=== PATIENT | male | born 1985 | race African-American/Black ===

== ENCOUNTER 2017-10-07 17:24 | Emergency (ER) | payer OTHER ==
--- NOTE | 2017-10-07 18:37 | RAD ---
PORTABLE CHEST: 10/07/17 HISTORY: Hypoglycemic. Patient found unresponsive. Heart size and mediastinum are within normal limits. The lungs are clear of infiltrates. No significa nt bony findings. There is suggestion there may be some subsegmental atelectatic changes in the lung bases. IMPRESSION: Minimal subsegmental atelectasis in the lung bases. POS: [facility]
[2017-10-07 18:44] LABS: #Basophils 0.1 thou/uL (0.0-0.2); #Eosinphils 0.1 thou/uL (0.0-0.7); #Lymphocytes 1.2 thou/uL (1.20-3.40); #Monocytes 0.5 thou/uL (0.11-0.59); #Neutrophils 5.6 thou/uL (1.40-6.50); %Basophils 0.7 % (0.0-1.0); %Eosinophils 1.1 % (0.0-10.0); %Lymphocytes 16.4 % (21.0-51.0); %Neutrophils 74.9 % (42.0-75.0); Hemoglobin 13.1 g/dL (14.0-18.0); Mean Corpuscular HGB CONC 34.1 g/dL (32.0-36.0); Mean Corpuscular Volume 96.8 fl (80.0-94.0); Mean Platelet Volume 6.7 fL (7.4-10.4); Platelet Count 322 thou/uL (130-400); RBC Distribution Width 10.9 % (11.5-14.5); Red Blood Cell (RBC) Count 3.98 mill/uL (4.70-6.10); White Blood Cell (WBC) Count 7.4 thou/uL (4.8-10.8)
[2017-10-07 19:09] LABS: CKMB 2.9 ng/mL (0-6.6); Troponin I 0.013 ng/mL (< 0.028)
[2017-10-07 19:14] LABS: ALT (SGPT) 21 U/L (8-55); AST (SGOT) 21 U/L (5-34); Alkaline Phosphatase 87 U/L (40-150); Anion Gap 12 mmol/L (10-20); BUN (Urea Nitrogen) 36 mg/dL (8.9-20.6); Bilirubin, Total 0.7 mg/dL (0.2-1.2); Calc. Creatinine Clearance 0 mL/min (70-130); Calcium 9.3 mg/dL (7.8-10.44); Carbon Dioxide 27 mmol/L (22-29); Chloride 103 mmol/L (98-107); Estimated GFR-MDRD 36; Globulin 3.7 g/dL (2.4-3.5); Glucose 89 mg/dL (70-105); Magnesium 2.4 mg/dL (1.6-2.6); Potassium 4.2 mmol/L (3.5-5.1); Protein, Total 7.7 g/dL (6.0-8.3); Sodium 138 mmol/L (136-145)
== END 2017-10-07 20:17 | disposition home or self-care (01) ==
LOC: ERS 17:24
DX: E11.649 Type 2 diabetes mellitus with hypoglycemia without coma (principal); I10 Essential (primary) hypertension; Z79.899 Other long term (current) drug therapy
CPT/HCPCS: 36415; 36416; 71045; 80053; 82553; 83735; 84484; 85025; 93005

== ENCOUNTER 2019-06-14 11:46 | Inpatient (IN) | payer OTHER, SELFPAY ==
[2019-06-14 12:39] LABS: #Lymphocytes 0.9 thou/uL (1.20-3.40); #Monocytes 0.3 thou/uL (0.11-0.59); #Neutrophils 3.5 thou/uL (1.40-6.50); %Basophils 0.3 % (0.0-1.0); %Eosinophils 0.8 % (0.0-10.0); %Lymphocytes 18.3 % (21.0-51.0); %Monocytes 6.6 % (0.0-10.0); %Neutrophils 74.1 % (42.0-75.0); Hemoglobin 12.2 g/dL (14.0-18.0); Mean Corpuscular HGB CONC 32.7 g/dL (32.0-36.0); Mean Corpuscular Hemoglobin 32.1 pg (27.0-31.0); Mean Corpuscular Volume 98.1 fL (78.0-98.0); Mean Platelet Volume 7.4 fL (7.4-10.4); Platelet Count 300 thou/uL (130-400); RBC Distribution Width 10.8 % (11.5-14.5); Red Blood Cell (RBC) Count 3.79 mill/uL (4.70-6.10); White Blood Cell (WBC) Count 4.7 thou/uL (4.8-10.8)
[2019-06-14 13:06] LABS: ALT (SGPT) 29 U/L (8-55); AST (SGOT) 23 U/L (5-34); Albumin 3.5 g/dL (3.5-5.0); Alkaline Phosphatase 90 U/L (40-110); Anion Gap 17 mmol/L (10-20); BUN (Urea Nitrogen) 42 mg/dL (8.9-20.6); Bilirubin, Total 0.4 mg/dL (0.2-1.2); Calc. Creatinine Clearance 0 mL/min (70-130); Calcium 8.4 mg/dL (7.8-10.44); Carbon Dioxide 20 mmol/L (22-29); Chloride 104 mmol/L (98-107); Estimated GFR-MDRD 13; Globulin 3.2 g/dL (2.4-3.5); Glucose 171 mg/dL (70-105); Potassium 4.3 mmol/L (3.5-5.1); Protein, Total 6.7 g/dL (6.0-8.3); Sodium 137 mmol/L (136-145)
[2019-06-14] MEDS ORDERED: Adacel (T-DAP) 0.5 ML SYRINGE ONE ×2 (13:17→13:30)
[2019-06-14] MEDS ORDERED: Labetalol HCl 100 MG/20 ML VIAL ONE (14:37)
[2019-06-14 16:48] LABS: Troponin I 0.029 ng/mL (< 0.028)
[2019-06-14] MEDS ORDERED: Ondansetron PF 4 MG/2 ML Vial IVP PRN ×2 (19:02→19:19)
[2019-06-14] MEDS ORDERED: Ondansetron ODT 4 MG TAB SL PRN (19:02)
[2019-06-14] MEDS ORDERED: Sodium Chloride 0.9% 1,000 ML IV SCH (19:02)
[2019-06-14] MEDS ORDERED: Acetaminophen 325 MG TAB PO PRN (19:02)
[2019-06-14 19:09] VITALS: BMI 29.0
[2019-06-14] MEDS ORDERED: HumaLOG 300 UNITS/3 ML VIAL SC PRN (19:19)
[2019-06-14] MEDS ORDERED: cloNIDine 0.1 MG TAB PO PRN (19:19)
[2019-06-14] MEDS ORDERED: Dextrose 50% Abboject 50 ML SYRINGE SLOW IVP PRN (19:19)
[2019-06-14] MEDS ORDERED: Dextrose 5% in Water 1,000 ML IV PRN (19:19)
[2019-06-14] MEDS ORDERED: Acetaminophen 500 MG TAB PO PRN (19:19)
[2019-06-14] MEDS ORDERED: Ondansetron ODT 4 MG TAB PO PRN (19:19)
[2019-06-14] MEDS: cloNIDine 0.1 MG TAB PO PRN (19:57)
[2019-06-14 20:32] LABS: Troponin I 0.052 ng/mL (< 0.028)
[2019-06-14] MEDS: Famotidine 20 MG TAB PO SCH (22:02)
[2019-06-14] MEDS: Sodium Chloride 0.9% 1,000 ML IV SCH (22:03)
--- NOTE | 2019-06-15 00:01 | ULT ---
US Renal Bilateral STANDARD History: Acute kidney injury. Hypertension. Comparison: None. Findings: Real-time grayscale, color and spectral evaluation of the kidneys and urinary bladder was p erformed. Right kidney measures 10 x 4.1 x 5.3 cm and the left kidney measures 10 x 5.8 x 4.4 cm. No renal mass , hydronephrosis, or abnormal calcifications. No evidence for renal arterial stenosis. Both ureteral jets are seen. Normal arcuate resistive indices. Impression: No evidence for renal arterial stenosis or obstructive uropathy.
--- NOTE | 2019-06-15 00:02 | HP ---
PRIMARY CARE PHYSICIAN: Dr. Oakes at [facility]. CHIEF COMPLAINT: Confusion and elevated blood pressure. HISTORY OF PRESENT ILLNESS: This is a 33-year-old male with a significant history of hypertension, chronic kidney disease, and diabetes mellitus type 1, diagnosed at age 8, on chronic insulin therapy, who presented to [facility] Emergency Department after apparently noting elevated blood pressure, headaches, as well as confusion. The patient states he took 28 units of Lantus in the p.m. hours of 06/13/2019, he did not eat anything until the morning. The patient apparently presented to his employment, was found with altered mental status, at which point, a blood sugar was taken and noted at 47. The patient received orange juice with improvement in the glucose. The patient's mental status had improved with administration of glucose and juice as noted previously. The patient was also noted with elevated blood pressure over 200, at which point, the patient presented for evaluation. The patient denies compliance with his chronic medication regimen due to lack of medical insurance and inability for consistent followup. The patient has not seen his regular doctor at [facility] in over a year. The patient does admit to drinking multiple energy drinks during the day as well as a pre-workout creatine based supplement before doing weightlifting and cardiovascular workouts. The patient denied any chest pain, jaw, or left arm discomfort. The patient denied any hematuria, change to his bowel habits, or decreased urination. The patient does admit to lower extremity swelling over the last several weeks, left greater than right lower extremity. In the emergency room, the patient was noted with multiple metabolic derangements including a creatinine of 6.25, previously noted at 2.55 in 2018. The patient was also noted with systolic blood pressures in the 220/120s, receiving IV labetalol and p.o. clonidine. The patient also received intravenous normal saline x2 L and was referred to the Hospitalist Service for further evaluation. PAST MEDICAL HISTORY: 1. Diabetes mellitus type 1, diagnosed at age 8, on chronic insulin therapy. 2. Chronic kidney disease. 3. Hypertension, labile. 4. Medication noncompliance. PAST SURGICAL HISTORY: Status post right knee repair. FAMILY HISTORY: No inheritable diseases per patient report. SOCIAL HISTORY: The patient drinks approximately 1 to 2 times per month. No illicit drug use. No tobacco. CURRENT MEDICATIONS: 1. Benazepril 40 mg p.o. daily. 2. Carvedilol 12.5 mg p.o. daily. 3. Lantus 28 units at bedtime. ALLERGIES: NO KNOWN DRUG ALLERGIES. REVIEW OF SYSTEMS: CONSTITUTIONAL: Negative for weight loss or gain, ability to conduct usual activities. SKIN: Negative for rash, itching. EYES: Negative for double vision, pain. ENT/MOUTH: Negative for nose bleeding, neck stiffness, pain, tenderness. CARDIOVASCULAR: Negative for palpitations, dyspnea on exertion, orthopnea. RESPIRATORY: Negative for shortness of breath, wheezing, cough, hemoptysis, fever or night sweats. GASTROINTESTINAL: Negative for poor appetite, abdominal pain, heartburn, nausea, vomiting, constipation, or diarrhea. GENITOURINARY: Negative for urgency, frequency, dysuria, nocturia. MUSCULOSKELETAL: Negative for pain, swelling. NEUROLOGIC/PSYCHIATRIC: Negative for anxiety, depression. ALLERGY/IMMUNOLOGIC: Negative for skin rash, bleeding tendency. Otherwise negative except as stated per HPI. PHYSICAL EXAMINATION: VITAL SIGNS: On admission, blood pressure 190/117, pulse 109, respiratory rate 18, temperature 98.2 degrees Fahrenheit, O2 saturation 98% on room air. GENERAL APPEARANCE: This is a 33-year-old male, alert and oriented x3, pleasant, in no acute distress. HEENT: Pupils are equal, round, reactive to light and accommodation. Extraocular muscles are intact. No scleral icterus. No conjunctival injection. Nares are patent. OP is clear. Teeth in good repair. NECK: Supple. No cervical adenopathy. No thyromegaly. No carotid bruits. No JVD appreciated. Cervical spine with full active and passive range of motion. No meningeal signs noted. CHEST: Lungs are clear to auscultation bilaterally CARDIOVASCULAR: S1, S2 without noted murmur, rub, or gallop. ABDOMEN: Rounded, soft, nontender, and nondistended. Bowel sounds are positive in all 4 quadrants. There is no hepatosplenomegaly. No abdominal bruits. No rebound or guarding appreciated. EXTREMITIES: Warm and dry with fair turgor. Mild edema to the left lower extremity greater than right lower extremity. Pulses are palpable distally at the dorsalis pedis, posterior tibial, and popliteal arteries bilaterally. Capillary refill less than 2 seconds. NEUROLOGIC: Cranial nerves 2 through 12 are grossly intact. No focal or lateralizing signs appreciated. PERTINENT LABORATORY DATA AND X-RAY FINDINGS: Sodium 137, potassium 4.3, chloride 104, CO2 of 20, BUN 42, creatinine 6.25. Estimated GFR of 13, glucose 171, calcium 8.4. LFTs within normal limits. Total CK 258. Troponin I ranged between 0.027 and 0.029. CBC showed a white blood cell count of 4.7, hemoglobin 12, hematocrit 37, MCV 98, platelet count 300, with normal differential. EKG dated 06/14/2019 by my interpretation shows a sinus tachycardia with heart rates in the low 100s. Normal R-wave progression noted in the precordial leads. Normal axis. ASSESSMENT AND PLAN: 1. Hypertensive urgency. The patient will be admitted to the telemetry unit. We will continue labetalol 20 mg IV q.4 hours p.r.n. systolic greater than or equal to 170. Add clonidine 0.1 mg p.o. q.4 hours as needed for systolic greater than or equal to 170. Confirm home blood pressure regimen. Titrate blood pressure regimen to clinical response. Check 2D transthoracic echocardiogram. 2. Acute kidney injury on chronic kidney disease. Likely multifactorial acute kidney injury in the context of diabetes mellitus type 1, hypertension, and medication noncompliance. We will initiate intravenous normal saline at 75 mL/h. Avoid nephrotoxic agents and limit contrast exposure. Consult Nephrology Service for any further recommendations. Check bilateral renal ultrasound. Repeat creatinine in the a.m. 3. Hypertensive encephalopathy, improved. We will continue to monitor mental status and treat hypertension as stated previously. 4. Diabetes mellitus type 1. Insulin sliding scale for reflexive coverage. ADA diet. Check A1c level in the a.m. 5. Anemia secondary to chronic kidney disease. Stable H and H currently. Repeat CBC in the a.m. 6. Prophylaxis. SCDs while in bed. Pepcid 20 mg p.o. b.i.d. CODE STATUS: Full. Surrogate medical decision maker not identified. Job ID: [id number]
[2019-06-15 05:14] LABS: Hemoglobin 10.5 g/dL (14.0-18.0); Mean Corpuscular HGB CONC 33.5 g/dL (32.0-36.0); Mean Corpuscular Hemoglobin 32.5 pg (27.0-31.0); Mean Corpuscular Volume 97.2 fL (78.0-98.0); Mean Platelet Volume 7.1 fL (7.4-10.4); Platelet Count 267 thou/uL (130-400); RBC Distribution Width 10.7 % (11.5-14.5); Red Blood Cell (RBC) Count 3.24 mill/uL (4.70-6.10); White Blood Cell (WBC) Count 5.1 thou/uL (4.8-10.8)
[2019-06-15 05:15] LABS: Eosinophils 1 % (0-10); Lymphocytes 40 % (21-51); MDiff Complete? YES; Monocytes 7 % (0-10); Neutrophil 52 % (42-75); Platelet Morphology Comment Appears Adequate
[2019-06-15 05:22] LABS: Anion Gap 13 mmol/L (10-20); BUN (Urea Nitrogen) 39 mg/dL (8.9-20.6); Calc. Creatinine Clearance 25 mL/min (70-130); Calcium 8.3 mg/dL (7.8-10.44); Carbon Dioxide 20 mmol/L (22-29); Chloride 110 mmol/L (98-107); Estimated GFR-MDRD 15; Glucose 149 mg/dL (70-105); Potassium 3.8 mmol/L (3.5-5.1); Sodium 139 mmol/L (136-145)
[2019-06-15] MEDS: cloNIDine 0.1 MG TAB PO PRN (08:00)
[2019-06-15] MEDS: HumaLOG 300 UNITS/3 ML VIAL SC PRN ×2 (08:02→17:11)
[2019-06-15] MEDS: cloNIDine 0.1 MG TAB PO SCH ×2 (09:56→20:40)
[2019-06-15] MEDS ORDERED: cloNIDine 0.1 MG TAB PO SCH (10:00)
[2019-06-15] MEDS: NIFEdipine XL 30 MG TAB PO SCH (10:11)
[2019-06-15] MEDS: Sodium Chloride 0.9% 1,000 ML IV SCH ×2 (10:12→12:11)
--- NOTE | 2019-06-15 10:30 | CON ---
DATE OF CONSULTATION: HISTORY OF PRESENT ILLNESS: Mr. Jones is a 33-year-old black male, known history of hypertension, type 1 diabetes mellitus, chronic renal failure, and was admitted due to hypoglycemia. He was also noted to have an acute kidney injury on top of his chronic renal failure. His FANNY inhibitors have been discontinued. He is being given IV hydration. The patient no longer follows up with his renal doctor when he lost his insurance. We are being consulted for his acute kidney injury. REVIEW OF SYSTEMS: Positive for dizziness. No chest pain. No shortness of breath. Occasional leg edema. No diarrhea. No constipation. No productive cough. No fever or chills. No headache. No diplopia. No syncopal episode. No sore throat. No diarrhea. No fever or chills. Appetite and energy level are fair. HOME MEDICATIONS: Included, 1. Hydrochlorothiazide 25 mg once a day. 2. Fish oil 1000 mg daily. 3. Carvedilol 12.5 mg p.o. b.i.d. 4. Benazepril 40 mg at bedtime. 5. Aspirin 81 mg tablet once a day. 6. Lantus insulin 28 units subcu at bedtime. PAST MEDICAL HISTORY: Type 1 diabetes mellitus, hypertension, chronic renal failure secondary to presumed diabetic nephropathy. PAST SURGICAL HISTORY: Right knee arthroscopic surgery. SOCIAL HISTORY: The patient is single, lives in [place]. 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 Education, high school. No children. No IV drug abuse. No blood transfusion. Active lifestyle. Education, high school. FAMILY HISTORY: No family history of ESRD. ALLERGIES: NONE. TRAUMA: None. IMMUNIZATION: Up-to-date. HOSPITALIZATION: Please see past medical history. PHYSICAL EXAMINATION: VITAL SIGNS: Blood pressure is 209/118, heart rate is 97, respiratory rate is 16, temperature is 98, and pulse oximetry is 99%. GENERAL: Noted to be awake, alert, sitting comfortable, not in overt distress. SKIN: Adequate turgor. HEENT: He has slightly pale conjunctivae. Anicteric sclerae. NECK: No neck mass. No carotid bruits. No JVD. CHEST: No deformities. LUNGS: Clear breath sounds. No wheezing. No crackles. HEART: Normal sinus rhythm. No murmur. No gallops. No rubs. ABDOMEN: Globular, soft, nontender. No masses. EXTREMITIES: No edema. No deformities. LABORATORY DATA: Laboratories of June 15, 2019, white count 5.1, hemoglobin 10.5. Sodium 139, potassium 3.8, chloride 110, carbon dioxide 20, BUN 39, creatinine 5.53, GFR 15 mL/minute, calcium 8.3. June 14, 2019, creatinine 6.25. Troponin I 0.052. IMAGING STUDIES: June 14, 2019, renal ultrasound shows normal arcuate resistive indices. No obstruction. No evidence of renal arterial stenosis. ASSESSMENT AND PLAN: 1. Labile hypertension. Start clonidine on a regular basis. Consider also adding nifedipine 30 mg XL tablet once a day. We will hold off FNANY inhibitors due to his elevated creatinine. 2. Acute kidney injury on top of his chronic renal failure-consider a superimposed hemodynamically-mediated renal dysfunction. Please note, he was on FANNY inhibitors prior to admission. The FANNY inhibitors have been discontinued. 3. Chronic renal failure. 4. History of diabetes mellitus and most likely diabetic nephropathy. We will review urinalysis. 5. Overall agree with current management. Job ID: [id number]
--- NOTE | 2019-06-15 11:07 | PDOC.HOSPP ---
- Subjective Encounter Date: 06/15/19 Encounter Time: 11:05 Subjective: f/u for HTN urgency, SHAYY. Feels better overall and less THOMAS. - Objective Vital Signs & Weight: Vital Signs (12 hours) Temp Pulse Resp BP BP Pulse Ox 06/15/19 10:11 193/107 H 06/15/19 08:00 209/118 H 06/15/19 07:55 98 F 97 16 209/118 H 97 06/15/19 04:00 98.5 F 92 18 162/91 H 98 06/15/19 00:00 98.2 F 87 20 165/95 H 99 Weight Weight 202 lb 7 oz I&O: 06/14/19 06/15/19 06/16/19 06:59 06:59 06:59 Intake Total 840 Balance 840 Result Diagrams: 06/15/19 04:55 06/15/19 04:55 Additional Labs: Accuchecks 06/15/19 06/14/19 06/14/19 06:37 22:04 20:20 POC Glucose 160 H 326 H 252 H 06/14/19 11:54 POC Glucose 126 H Laboratory Tests 06/14/19 06/14/19 06/14/19 12:28 12:28 12:29 Hgb 12.2 L Creatinine 6.25 H Hemoglobin A1c Troponin I 0.027 06/14/19 06/14/19 06/15/19 15:58 19:57 04:55 Hgb Creatinine Hemoglobin A1c 8.0 H Troponin I 0.029 H 0.052 H Radiology Reviewed by me: Yes (Renal sono - no obstruction or stenosis) EKG Reviewed by me: Yes (Tele - SR) Hospitalist ROS - Medication Medications: Active Medications Generic Name Dose Route Start Last Admin Trade Name Freq PRN Reason Stop Dose Admin Clonidine 0.2 mg 06/15/19 09:00 06/15/19 09:56 Catapres PO Not Given BID FLORENTINO Clonidine 0.1 mg 06/15/19 10:00 06/15/19 10:11 Catapres PO 06/15/19 12:00 0.1 mg NOW FLORENTINO Administration Famotidine 20 mg 06/14/19 21:00 06/14/19 22:02 Pepcid PO 20 mg QPM FLORENTINO Administration Insulin Human Lispro 0 units 06/14/19 19:19 06/15/19 08:02 Humalog SC 3 unit .AGGRESSIVE SLIDING PRN Administration Aggressive Correctional Scale Insulin Human Lispro 0 units 06/14/19 19:19 06/14/19 22:07 Humalog SC 4 unit .BEDTIME SLIDING SC PRN Administration Bedtime Correctional Scale Nifedipine 30 mg 06/15/19 09:00 06/15/19 10:11 Procardia Xl PO 30 mg DAILY FLORENTINO Administration - Exam General Appearance: NAD, awake alert Eye: PERRL, anicteric sclera ENT: normocephalic atraumatic, no oropharyngeal lesions Neck: supple, symmetric, no JVD, no thyromegaly, no lymphadenopathy Heart: RRR, no murmur, no gallops, no rubs, normal peripheral pulses Respiratory: CTAB, no wheezes, no rales, no ronchi, normal chest expansion Gastrointestinal: soft, non-tender, non-distended, normal bowel sounds Extremities: no cyanosis, no clubbing, 1+ LE edema Skin: normal turgor, no lesions Neurological: cranial nerve grossly intact, no focal deficits, no new deficit Musculoskeletal: normal tone, normal strength Psychiatric: normal affect, A&O x 3 Hosp A/P (1) Hypertensive urgency Code(s): I16.0 - HYPERTENSIVE URGENCY Status: Acute Plan: Labile BP persists, resume Coreg 12.5mg BID, continue Clonidine, Procardia, holding FANNY-i/HCTZ due to SHAYY/ATN (2) Acute tubular necrosis Code(s): N17.0 - ACUTE KIDNEY FAILURE WITH TUBULAR NECROSIS Status: Acute Plan: Mild improvement, continue low-volume IVF's, avoid nephrotoxic meds and limit contrast exposure, serial creatinine (3) CKD (chronic kidney disease) stage 3, GFR 30-59 ml/min Code(s): N18.3 - CHRONIC KIDNEY DISEASE, STAGE 3 (MODERATE) Status: Chronic Plan: See above (4) Anemia in CKD (chronic kidney disease) Code(s): N18.9 - CHRONIC KIDNEY DISEASE, UNSPECIFIED; D63.1 - ANEMIA IN CHRONIC KIDNEY DISEASE Status: Chronic Plan: No evidence of active loss, serial H/H monitoring - Plan social media director, DVT proph w/SCDs Continue low-volume IVF's Restart Coreg 12.5mg BID Continue Nifedipine 30mg daily Avoid nephrotoxic meds and hold FANNY-i/HCTZ AM lab: BMP, CBC, PO3
[2019-06-15] MEDS ORDERED: Carvedilol 6.25 MG TAB PO SCH (11:15)
[2019-06-15] MEDS ORDERED: Non-Formulary Item 1 EACH (Carvedilol [Carvedilol] 12.5 MG) PO SCH ×2 (11:30→21:00)
[2019-06-15 13:28] LABS: Bacteria/HPF None Seen HPF (None Seen); Bilirubin Negative (Negative); Blood, Urine Trace (Negative); Clarity Clear (Clear); Glucose, Urine (Dipstick) 300 mg/dL (Negative); Leukocyte Negative Leu/uL (Negative); Nitrite Negative (Negative); Protein, Urine (Dipstick) 200 mg/dL (Neg-Trace); RBC/HPF 0-3 HPF (0-3); Squamous Epithelial 0-3 HPF (0-3); Urobilinogen Normal mg/dL (Less than 2); WBC/HPF 0-3 HPF (0-3)
[2019-06-15] MEDS ORDERED: Insulin Glargine 28 UNITS in Pre-Filled Syringe 1 EACH SC SCH (17:15)
[2019-06-15] MEDS: Carvedilol 6.25 MG TAB PO SCH (20:40)
[2019-06-15] MEDS: Famotidine 20 MG TAB PO SCH (20:40)
[2019-06-16] MEDS: Labetalol HCl 100 MG/20 ML VIAL SLOW IVP PRN (04:11)
[2019-06-16 06:00] LABS: #Basophils 0.1 thou/uL (0.0-0.2); #Eosinphils 0.2 thou/uL (0.0-0.7); #Lymphocytes 1.5 thou/uL (1.20-3.40); #Monocytes 0.4 thou/uL (0.11-0.59); #Neutrophils 3.1 thou/uL (1.40-6.50); %Basophils 1.1 % (0.0-1.0); %Eosinophils 3.4 % (0.0-10.0); %Lymphocytes 28.5 % (21.0-51.0); %Monocytes 7.1 % (0.0-10.0); %Neutrophils 59.8 % (42.0-75.0); Hemoglobin 11.4 g/dL (14.0-18.0); Mean Corpuscular HGB CONC 34.6 g/dL (32.0-36.0); Mean Corpuscular Volume 95.5 fL (78.0-98.0); Platelet Count 266 thou/uL (130-400); RBC Distribution Width 10.6 % (11.5-14.5); Red Blood Cell (RBC) Count 3.46 mill/uL (4.70-6.10); White Blood Cell (WBC) Count 5.2 thou/uL (4.8-10.8)
[2019-06-16 06:22] LABS: Anion Gap 12 mmol/L (10-20); BUN (Urea Nitrogen) 39 mg/dL (8.9-20.6); Calc. Creatinine Clearance 26 mL/min (70-130); Calcium 8.2 mg/dL (7.8-10.44); Carbon Dioxide 21 mmol/L (22-29); Chloride 106 mmol/L (98-107); Estimated GFR-MDRD 15; Glucose 180 mg/dL (70-105); Phosphorus 4.2 mg/dL (2.3-4.7); Potassium 4.1 mmol/L (3.5-5.1); Sodium 135 mmol/L (136-145)
[2019-06-16] MEDS ORDERED: Insulin Glargine 28 UNITS in Pre-Filled Syringe 1 EACH SC SCH (09:00)
[2019-06-16] MEDS: Carvedilol 6.25 MG TAB PO SCH ×2 (09:39→19:55)
[2019-06-16] MEDS: cloNIDine 0.1 MG TAB PO SCH ×2 (09:39→19:54)
[2019-06-16] MEDS: NIFEdipine XL 30 MG TAB PO SCH (09:39)
--- NOTE | 2019-06-16 09:39 | PRG ---
DATE OF SERVICE: 06/16/2019 SUBJECTIVE: Mr. Jones is a 33-year-old black male, who was admitted for labile hypertension. He was also found to be in acute kidney injury on top of his chronic renal failure. Gentle IV hydration is being done. In addition, his medications were adjusted. He has been discontinued his benazepril. Creatinine is stabilizing. No new complaints today. No chest pain or shortness of breath. OBJECTIVE: VITAL SIGNS: Blood pressure 178/100, heart rate 88, respiratory rate 18, temperature 97.5, and pulse ox 99% on room air. GENERAL: Awake, alert, comfortable, not in distress. SKIN: Adequate turgor. HEENT: Pinkish conjunctivae, anicteric sclerae. NECK: No neck mass. No carotid bruits. No JVD. CHEST: No deformities. LUNGS: Clear breath sounds. HEART: Normal sinus rhythm. No murmur. No gallops. No rubs. ABDOMEN: Globular, soft, nontender. No masses. EXTREMITIES: No edema, no deformities. MEDICATIONS: June 16, 2019, was reviewed. LABORATORY DATA: Laboratories of June 16, 2019, showed sodium of 135, potassium 4.1, chloride 106, carbon dioxide 21, BUN 39, creatinine 5.29, glucose 180, and calcium 8.2, phosphorus 4.2. PTH is 297. Hemoglobin 11.4. Cardiac echo-normal EF. Urinalysis shows proteinuria. ASSESSMENT AND PLAN: 1. Acute kidney injury on top of his chronic renal failure-superimposed hemodynamically mediated renal dysfunction. The medication benazepril may be playing a factor in the worsening renal dysfunction. This has been discontinued. Continue gentle volume repletion. I have increase normal saline to 125 mL/hour. No indication for any dialytic intervention. I do anticipate further improvement with his renal function. 2. Labile hypertension. Continue current BP medications. Hold off any FANNY inhibitors or ARB. 3. Chronic renal failure secondary to diabetic nephropathy. Optimize diabetes control. 4. Recheck CBC basic metabolic profile in a.m. 5. Secondary hyperparathyroidism. Calcitriol 0.25 mcg tablet daily was started. Job ID: [id number]
[2019-06-16] MEDS: Aspirin 81 mg Enteric Coated Tablet PO SCH (09:40)
[2019-06-16] MEDS: HumaLOG 300 UNITS/3 ML VIAL SC PRN ×3 (09:42→18:20)
[2019-06-16] MEDS: Sodium Chloride 0.9% 1,000 ML IV SCH ×4 (09:52→21:33)
[2019-06-16] MEDS: Calcitriol 0.25 MCG CAP PO SCH (09:53)
--- NOTE | 2019-06-16 13:46 | PDOC.HOSPP ---
- Subjective Subjective: Seen and examined. Patient sitting up and share, eating breakfast. In no apparent distress. Patient inquiring on when he can go home. Patient's renal function and sodium are still severely abnormal. Patient's blood sugars not controlled. Time was given for questions, all answered in detail. Patient has several family members who have been on dialysis in the past. - Objective Vital Signs & Weight: Vital Signs (12 hours) Temp Pulse Resp BP BP Pulse Ox 06/16/19 11:43 98.5 F 72 12 154/85 H 100 06/16/19 09:39 91 06/16/19 08:10 98 F 91 18 180/102 H 98 06/16/19 05:55 178/100 H 06/16/19 04:11 85 187/108 H 06/16/19 04:00 97.5 F L 88 18 180/106 H 99 Weight Admit Weight 202 lb 7 oz Weight 200 lb 7 oz I&O: 06/15/19 06/16/19 06/17/19 06:59 06:59 06:59 Intake Total 840 3070 Output Total 650 Balance 840 2420 Result Diagrams: 06/16/19 05:51 06/16/19 05:51 Additional Labs: Accuchecks 06/16/19 06/16/19 06/16/19 12:56 09:39 05:26 POC Glucose 218 H 245 H 191 H 06/15/19 06/15/19 06/15/19 23:32 20:20 17:02 POC Glucose 184 H 209 H Greater than 550 H* 06/15/19 16:48 POC Glucose 531 H Radiology Reviewed by me: Yes (Echo) Hospitalist ROS - Review of Systems All other systems reviewed; all pertinent +/- noted in HPI/Subj - Medication Medications: Active Medications Generic Name Dose Route Start Last Admin Trade Name Freq PRN Reason Stop Dose Admin Aspirin 81 mg 06/16/19 09:00 06/16/19 09:40 Ecotrin PO 81 mg DAILY FLORENTINO Administration Calcitriol 0.25 mcg 06/16/19 09:00 06/16/19 09:53 Rocaltrol PO 0.25 mcg DAILY FLORENTINO Administration Carvedilol 12.5 mg 06/15/19 21:00 06/16/19 09:39 Coreg PO 12.5 mg BID FLORENTINO Administration Clonidine 0.2 mg 06/15/19 09:00 06/16/19 09:39 Catapres PO 0.2 mg BID FLORENTINO Administration Famotidine 20 mg 06/14/19 21:00 06/15/19 20:40 Pepcid PO 20 mg QPM FLORENTINO Administration Sodium Chloride 1,000 mls @ 125 mls/hr 06/16/19 08:38 06/16/19 09:54 Normal Saline 0.9% IV 1,000 mls .Q8H FLORENTINO Administration Insulin Human Lispro 0 units 06/14/19 19:19 06/16/19 13:33 Humalog SC 6 unit .AGGRESSIVE SLIDING PRN Administration Aggressive Correctional Scale Insulin Human Lispro 0 units 06/14/19 19:19 06/14/19 22:07 Humalog SC 4 unit .BEDTIME SLIDING SC PRN Administration Bedtime Correctional Scale Labetalol HCl 20 mg 06/14/19 19:19 06/16/19 04:11 Normodyne SLOW IVP 20 mg Q4H PRN Administration SBP > 180 and HR >/= 70 Nifedipine 30 mg 06/15/19 09:00 06/16/19 09:39 Procardia Xl PO 30 mg DAILY FLORENTINO Administration - Exam General Appearance: NAD Eye: PERRL, anicteric sclera ENT: normocephalic atraumatic, moist mucosa Neck: supple, symmetric, no lymphadenopathy Heart: RRR, no murmur, no gallops, no rubs Respiratory: CTAB, no wheezes, no rales, no ronchi, normal chest expansion Gastrointestinal: soft, non-tender, non-distended, normal bowel sounds, no palpable masses, no guarding, no rigidity Extremities: no edema Skin: no lesions, no rashes Neurological: no weakness Musculoskeletal: normal tone, normal strength, no muscle wasting Psychiatric: normal affect, A&O x 3 Hosp A/P (1) 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 Code(s): E10.29 - TYPE 1 DIABETES MELLITUS W OTH DIABETIC KIDNEY COMPLICATION; E10.65 - TYPE 1 DIABETES MELLITUS WITH HYPERGLYCEMIA Status: Chronic (2) Acute tubular necrosis Code(s): N17.0 - ACUTE KIDNEY FAILURE WITH TUBULAR NECROSIS Status: Acute (3) Hypertensive urgency Code(s): I16.0 - HYPERTENSIVE URGENCY Status: Acute (4) Anemia in CKD (chronic kidney disease) Code(s): N18.9 - CHRONIC KIDNEY DISEASE, UNSPECIFIED; D63.1 - ANEMIA IN CHRONIC KIDNEY DISEASE Status: Chronic (5) CKD (chronic kidney disease) stage 3, GFR 30-59 ml/min Code(s): N18.3 - CHRONIC KIDNEY DISEASE, STAGE 3 (MODERATE) Status: Chronic - Plan Plan: medical unit with telemetry, okay for downgrade to medical nephrology consultation, recommendations appreciated renal function slowly improving blood pressure medications being adjusted appropriately by nephrology long and short acting insulin for glucose control, adjusting regimen educated on importance of taking control of his blood sugars and hypertension to avoid renal failure patient does admit to missing several doses of medications in the past few days/ weeks. PRN medications for BP control
[2019-06-16] MEDS: Famotidine 20 MG TAB PO SCH (19:55)
[2019-06-16] MEDS ORDERED: Insulin Glargine 15 UNITS in Pre-Filled Syringe SC SCH (21:00)
[2019-06-17] MEDS: Sodium Chloride 0.9% 1,000 ML IV SCH ×2 (05:04→16:57)
[2019-06-17 06:03] LABS: #Basophils 0.1 thou/uL (0.0-0.2); #Eosinphils 0.2 thou/uL (0.0-0.7); #Monocytes 0.4 thou/uL (0.11-0.59); #Neutrophils 2.2 thou/uL (1.40-6.50); %Basophils 1.2 % (0.0-1.0); %Eosinophils 3.9 % (0.0-10.0); %Lymphocytes 41.1 % (21.0-51.0); %Monocytes 8.7 % (0.0-10.0); %Neutrophils 45.1 % (42.0-75.0); Hemoglobin 11.6 g/dL (14.0-18.0); Mean Corpuscular HGB CONC 34.4 g/dL (32.0-36.0); Mean Corpuscular Hemoglobin 33.1 pg (27.0-31.0); Mean Corpuscular Volume 96.2 fL (78.0-98.0); Mean Platelet Volume 7.5 fL (7.4-10.4); Platelet Count 264 thou/uL (130-400); RBC Distribution Width 10.6 % (11.5-14.5); Red Blood Cell (RBC) Count 3.51 mill/uL (4.70-6.10); White Blood Cell (WBC) Count 4.9 thou/uL (4.8-10.8)
[2019-06-17 06:24] LABS: Anion Gap 12 mmol/L (10-20); BUN (Urea Nitrogen) 40 mg/dL (8.9-20.6); Calc. Creatinine Clearance 27 mL/min (70-130); Calcium 8.3 mg/dL (7.8-10.44); Carbon Dioxide 19 mmol/L (22-29); Chloride 109 mmol/L (98-107); Estimated GFR-MDRD 16; Glucose 76 mg/dL (70-105); Potassium 3.9 mmol/L (3.5-5.1); Sodium 136 mmol/L (136-145)
[2019-06-17] MEDS: Aspirin 81 mg Enteric Coated Tablet PO SCH (08:38)
[2019-06-17] MEDS: Carvedilol 6.25 MG TAB PO SCH (08:38)
[2019-06-17] MEDS: NIFEdipine XL 30 MG TAB PO SCH (08:39)
[2019-06-17] MEDS: Calcitriol 0.25 MCG CAP PO SCH (08:39)
[2019-06-17] MEDS: cloNIDine 0.1 MG TAB PO SCH ×2 (08:39→19:51)
--- NOTE | 2019-06-17 09:52 | PRG ---
DATE OF SERVICE: 06/17/2019 SUBJECTIVE: Mr. Jones is a 33-year-old black male, who was admitted for labile hypertension and acute kidney injury on top of his chronic renal failure. Creatinine has now been stabilizing. Blood pressure is also much improved. I did have a long discussion with the patient that he may eventually need dialysis. He is aware about this. The patient denies any chest pain or shortness of breath. OBJECTIVE: VITAL SIGNS: Blood pressure 164/99, heart rate 88, respiratory rate 16, temperature 98.6, and pulse ox 100%. GENERAL: The patient is awake, alert, comfortable, not in distress. SKIN: Adequate turgor. HEENT: He has a pinkish conjunctivae. Anicteric sclerae. NECK: No neck mass. No carotid bruits. No JVD. CHEST: No deformities. LUNGS: Clear breath sounds. No wheezing. No crackles. HEART: Normal sinus rhythm. No murmur. No gallops. No rubs. ABDOMEN: Globular, soft, nontender, no masses. EXTREMITIES: No edema, no deformities. MEDICATIONS: Of June 17, 2019, was reviewed. LABORATORY DATA: June 17, 2019, white count 4.9, hemoglobin 11.6. Sodium 136, potassium 3.9, chloride 109, carbon dioxide 19, BUN 40, creatinine 5.09, glucose 76, calcium 8.3. ASSESSMENT AND PLAN: 1. Acute kidney injury on top of his chronic renal failure, slightly improved creatinine at 5.09. Please note, he came in with a peak creatinine of 6.25. GFR is much improved from 13 mL/minute to most recent value of 16 mL/minute. Continue current management. Hold off any FANNY inhibitors or ARB for the moment. 2. Labile hypertension, improving. Continue current BP medications. From a renal point of view, he can be discharge any time. 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 Job ID: [id number]
[2019-06-17] MEDS: Insulin Glargine 15 UNITS in Pre-Filled Syringe 1 EACH SC SCH (10:23)
[2019-06-17] MEDS: HumaLOG 300 UNITS/3 ML VIAL SC PRN ×2 (12:03→18:15)
[2019-06-17] MEDS: Labetalol HCl 100 MG/20 ML VIAL SLOW IVP PRN (13:26)
--- NOTE | 2019-06-17 14:07 | PDOC.HOSPP ---
- Subjective Subjective: Seen and examined. Patient with highs and lows to blood sugar. This morning he is low and required several juices to bring his blood sugars up. Adjusting insulin regimen to avoid hypoglycemia and yet have his sugars controlled in the daytime has been difficult. Brittle diabetic. Renal function with minor improvements. - Objective Vital Signs & Weight: Vital Signs (12 hours) Temp Pulse Resp BP BP Pulse Ox 06/17/19 13:26 88 191/107 H 06/17/19 13:25 98.3 F 88 18 191/107 H 98 06/17/19 08:39 88 06/17/19 08:05 98.6 F 88 16 164/99 H 100 06/17/19 08:03 100 06/17/19 03:24 98.2 F 81 15 165/92 H 98 Weight Admit Weight 202 lb 7 oz Weight 205 lb 4 oz I&O: 06/16/19 06/17/19 06/18/19 06:59 06:59 06:59 Intake Total 3070 4025 Output Total 650 Balance 2420 4025 Result Diagrams: 06/17/19 05:47 06/17/19 05:47 Additional Labs: Accuchecks 06/17/19 06/17/19 06/17/19 12:05 10:19 08:38 POC Glucose 183 H 210 H 49 L* 06/17/19 06/16/19 06/16/19 05:19 20:44 18:14 POC Glucose 56 L* 154 H 323 H Radiology Reviewed by me: Yes (Echo) Hospitalist ROS - Review of Systems All other systems reviewed; all pertinent +/- noted in HPI/Subj - Medication Medications: Active Medications Generic Name Dose Route Start Last Admin Trade Name Freq PRN Reason Stop Dose Admin Aspirin 81 mg 06/16/19 09:00 06/17/19 08:38 Ecotrin PO 81 mg DAILY FLORENTINO Administration Calcitriol 0.25 mcg 06/16/19 09:00 06/17/19 08:39 Rocaltrol PO 0.25 mcg DAILY FLORENTINO Administration Carvedilol 12.5 mg 06/15/19 21:00 06/17/19 08:38 Coreg PO 12.5 mg BID FLORENTINO Administration Clonidine 0.2 mg 06/15/19 09:00 06/17/19 08:39 Catapres PO 0.2 mg BID FLORENTINO Administration Famotidine 20 mg 06/14/19 21:00 06/16/19 19:55 Pepcid PO 20 mg QPM FLORENTINO Administration Sodium Chloride 1,000 mls @ 125 mls/hr 06/16/19 08:38 06/17/19 05:04 Normal Saline 0.9% IV 1,000 mls .Q8H FLORENTINO Administration Insulin Glargine 15 units/ 0.15 mls @ 0 mls/hr 06/17/19 09:00 06/17/19 10:23 Miscellaneous Medication SC 0.15 mls QAM FLORENTINO Administration As Directed Insulin Human Lispro 0 units 06/14/19 19:19 06/17/19 12:03 Humalog SC 3 unit .AGGRESSIVE SLIDING PRN Administration Aggressive Correctional Scale Insulin Human Lispro 0 units 06/14/19 19:19 06/14/19 22:07 Humalog SC 4 unit .BEDTIME SLIDING SC PRN Administration Bedtime Correctional Scale Labetalol HCl 20 mg 06/14/19 19:19 06/17/19 13:26 Normodyne SLOW IVP 20 mg Q4H PRN Administration SBP > 180 and HR >/= 70 Nifedipine 30 mg 06/15/19 09:00 06/17/19 08:39 Procardia Xl PO 30 mg DAILY FLORENTINO Administration - Exam General Appearance: NAD, awake alert Eye: anicteric sclera ENT: normocephalic atraumatic, moist mucosa Neck: supple, symmetric, no lymphadenopathy Heart: RRR, no murmur, no gallops Respiratory: CTAB, no wheezes, no rales, no ronchi Gastrointestinal: soft, non-tender, normal bowel sounds, no guarding, no rigidity Extremities: no clubbing Skin: no lesions, no rashes Neurological: cranial nerve grossly intact, no weakness Musculoskeletal: no muscle wasting Psychiatric: A&O x 3 Hosp A/P (1) 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 Code(s): E10.29 - TYPE 1 DIABETES MELLITUS W OTH DIABETIC KIDNEY COMPLICATION; E10.65 - TYPE 1 DIABETES MELLITUS WITH HYPERGLYCEMIA Status: Chronic (2) Acute tubular necrosis Code(s): N17.0 - ACUTE KIDNEY FAILURE WITH TUBULAR NECROSIS Status: Acute (3) Hypertensive urgency Code(s): I16.0 - HYPERTENSIVE URGENCY Status: Acute (4) Anemia in CKD (chronic kidney disease) Code(s): N18.9 - CHRONIC KIDNEY DISEASE, UNSPECIFIED; D63.1 - ANEMIA IN CHRONIC KIDNEY DISEASE Status: Chronic (5) CKD (chronic kidney disease) stage 3, GFR 30-59 ml/min Code(s): N18.3 - CHRONIC KIDNEY DISEASE, STAGE 3 (MODERATE) Status: Chronic - Plan Plan: medical unit with telemetry, okay for downgrade to medical nephrology consultation, recommendations appreciated renal function slowly improving blood pressure not controlled, increasing carvedilolol, HR can tolerate long and short acting insulin for glucose control, adjusting regimen educated on importance of taking control of his blood sugars and hypertension to avoid renal failure patient does admit to missing several doses of medications in the past few days/ weeks. PRN medications for BP control
[2019-06-17] MEDS: Carvedilol 25 MG TAB PO SCH (19:52)
[2019-06-17] MEDS: Famotidine 20 MG TAB PO SCH (19:52)
[2019-06-17] MEDS ORDERED: Insulin Glargine 13 UNITS in Pre-Filled Syringe 1 EACH SC SCH (21:00)
[2019-06-18] MEDS: Sodium Chloride 0.9% 1,000 ML IV SCH (01:32)
[2019-06-18] MEDS: Labetalol HCl 100 MG/20 ML VIAL SLOW IVP PRN (06:35)
[2019-06-18] MEDS ORDERED: Dextrose 5 % And 0.9 % NaCl 1,000 ML IV SCH (08:00)
[2019-06-18 08:21] LABS: Anion Gap 12 mmol/L (10-20); BUN (Urea Nitrogen) 38 mg/dL (8.9-20.6); Calc. Creatinine Clearance 28 mL/min (70-130); Calcium 8.2 mg/dL (7.8-10.44); Carbon Dioxide 20 mmol/L (22-29); Chloride 107 mmol/L (98-107); Estimated GFR-MDRD 16; Glucose 233 mg/dL (70-105); Potassium 4.3 mmol/L (3.5-5.1); Sodium 135 mmol/L (136-145)
[2019-06-18] MEDS ORDERED: NIFEdipine XL 30 MG TAB PO SCH (09:00)
[2019-06-18] MEDS: cloNIDine 0.1 MG TAB PO SCH (09:34)
[2019-06-18] MEDS: Insulin Glargine 15 UNITS in Pre-Filled Syringe 1 EACH SC SCH (09:41)
[2019-06-18] MEDS: Calcitriol 0.25 MCG CAP PO SCH (09:43)
[2019-06-18] MEDS: Aspirin 81 mg Enteric Coated Tablet PO SCH (09:43)
[2019-06-18] MEDS: Carvedilol 25 MG TAB PO SCH ×2 (09:43→22:05)
[2019-06-18] MEDS: HumaLOG 300 UNITS/3 ML VIAL SC PRN ×2 (09:45→11:47)
[2019-06-18] MEDS ORDERED: Minoxidil 2.5 MG TAB PO SCH (10:00)
--- NOTE | 2019-06-18 10:17 | PRG ---
DATE OF SERVICE: 06/18/2019 SUBJECTIVE: Mr. Jones is a 33-year-old black male, initially admitted for an acute kidney injury/labile hypertension. Adjustment of BP medications has been done to further optimize blood pressure control. He was also noted to have worsening of his renal dysfunction. However, creatinine is now stabilizing at about a GFR of 16 mL/minute, His initial GFR was 13 mL/minute. No new complaints today. No chest pain or shortness of breath. OBJECTIVE: VITAL SIGNS: Blood pressure is 196/106 with a heart rate of 89, respiratory rate 16, temperature 97.5, and pulse ox 100%. GENERAL: The patient is awake, alert, and comfortable, not in overt distress. SKIN: Adequate turgor. HEENT: He has a pinkish conjunctivae. Anicteric sclerae. NECK: No neck mass. No carotid bruits. No JVD. CHEST: No deformities. LUNGS: Clear breath sounds. No wheezing. No crackles. HEART: Normal sinus rhythm. No murmurs, gallops, or rubs. ABDOMEN: Globular, soft, and nontender. No masses. EXTREMITIES: No edema. No deformities. MEDICATIONS: Medications of June 18, 2019, reviewed. LABORATORY DATA: Laboratories of June 17, 2019; white count 4.9 and hemoglobin 11.6. Sodium 135, potassium 4.3, chloride 107, carbon dioxide 20, BUN 38, creatinine 5.11, glucose 233, and calcium 8.2. ASSESSMENT AND PLAN: 1. Acute kidney injury/chronic renal failure. Stabilizing renal function. Creatinine 5.11, may be his new baseline. His GFR is 16 mL/minute. There is no indication for any dialytic intervention. Continue to hold off any FANNY inhibitors or ARB. 2. Hypertension, still not optimally controlled. Nifedipine recently increased to 60 mg tablet once a day. In addition, I have decided to add low-dose minoxidil at 2.5 mg tablet once a day. I did explain the side effects to the patient. 3. Agree with current management. Job ID: [id number]
--- NOTE | 2019-06-18 14:55 | PDOC.HOSPP ---
- Subjective Subjective: Seen and examined. Blood sugar was reported to me by the nurse as 29 this morning, however this is not been recorded in the lab results at this time. Patient was placed on a D5 drip and blood sugar improved to the 200s. Again lowering nighttime dose of long-acting insulin. Blood pressure still not controlled. Adjusting medications with help from nephrology. Creatinine has stabilized and likely his new baseline. - Objective Vital Signs & Weight: Vital Signs (12 hours) Temp Pulse Resp BP BP BP Pulse Ox 06/18/19 12:34 167/91 H 06/18/19 11:30 97.6 F 96 16 184/98 H 100 06/18/19 07:50 97.5 F L 89 16 196/106 H 100 06/18/19 06:35 86 200/117 H 06/18/19 04:00 97.5 F L 86 18 180/103 H 100 Weight Admit Weight 202 lb 7 oz Weight 207 lb 6 oz I&O: 06/17/19 06/18/19 06/19/19 06:59 06:59 06:59 Intake Total 4025 2400 Balance 4025 2400 Result Diagrams: 06/17/19 05:47 06/18/19 07:47 Additional Labs: Accuchecks 06/18/19 06/18/19 06/18/19 10:40 09:52 07:59 POC Glucose 280 H 234 H 237 H 06/18/19 06/17/19 06/17/19 06:44 21:00 17:52 POC Glucose 165 H 79 211 H Hospitalist ROS - Review of Systems All other systems reviewed; all pertinent +/- noted in HPI/Subj - Medication Medications: Active Medications Generic Name Dose Route Start Last Admin Trade Name Freq PRN Reason Stop Dose Admin Aspirin 81 mg 06/16/19 09:00 06/18/19 09:43 Ecotrin PO 81 mg DAILY FLORENTINO Administration Calcitriol 0.25 mcg 06/16/19 09:00 06/18/19 09:43 Rocaltrol PO 0.25 mcg DAILY FLORENTINO Administration Carvedilol 25 mg 06/17/19 21:00 06/18/19 09:43 Coreg PO 25 mg BID FLORENITNO Administration Dextrose/Water 25 gm 06/14/19 19:19 06/18/19 06:45 Dextrose 50% SLOW IVP 25 gm PRN PRN Administration Hypoglycemia Famotidine 20 mg 06/14/19 21:00 06/17/19 19:52 Pepcid PO 20 mg QPM FLORENTINO Administration Insulin Glargine 15 units/ 0.15 mls @ 0 mls/hr 06/17/19 09:00 06/18/19 09:41 Miscellaneous Medication SC 0.15 mls QAM FLORENTINO Administration As Directed Insulin Human Lispro 0 units 06/14/19 19:19 06/18/19 11:47 Humalog SC 9 unit .AGGRESSIVE SLIDING PRN Administration Aggressive Correctional Scale Insulin Human Lispro 0 units 06/14/19 19:19 06/14/19 22:07 Humalog SC 4 unit .BEDTIME SLIDING SC PRN Administration Bedtime Correctional Scale Labetalol HCl 20 mg 06/14/19 19:19 06/18/19 06:35 Normodyne SLOW IVP 20 mg Q4H PRN Administration SBP > 180 and HR >/= 70 Nifedipine 60 mg 06/18/19 09:00 06/18/19 09:43 Procardia Xl PO 60 mg DAILY FLORENTINO Administration - Exam General Appearance: NAD, awake alert Eye: anicteric sclera ENT: normocephalic atraumatic, moist mucosa Neck: supple, symmetric, no lymphadenopathy Heart: RRR, no murmur, no gallops, no rubs Respiratory: CTAB, no wheezes, no rales, no ronchi, normal chest expansion, no tachypnea Gastrointestinal: soft, non-tender, non-distended, no guarding, no rigidity Extremities: no clubbing, no edema Skin: no lesions, no rashes Neurological: cranial nerve grossly intact, no focal deficits Musculoskeletal: no muscle wasting Psychiatric: normal affect, A&O x 3 Hosp A/P (1) 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 Code(s): E10.29 - TYPE 1 DIABETES MELLITUS W OTH DIABETIC KIDNEY COMPLICATION; E10.65 - TYPE 1 DIABETES MELLITUS WITH HYPERGLYCEMIA Status: Chronic (2) Acute tubular necrosis Code(s): N17.0 - ACUTE KIDNEY FAILURE WITH TUBULAR NECROSIS Status: Acute (3) Hypertensive urgency Code(s): I16.0 - HYPERTENSIVE URGENCY Status: Acute (4) Anemia in CKD (chronic kidney disease) Code(s): N18.9 - CHRONIC KIDNEY DISEASE, UNSPECIFIED; D63.1 - ANEMIA IN CHRONIC KIDNEY DISEASE Status: Chronic (5) CKD (chronic kidney disease) stage 3, GFR 30-59 ml/min Code(s): N18.3 - CHRONIC KIDNEY DISEASE, STAGE 3 (MODERATE) Status: Chronic - Plan Plan: medical unit with telemetry, okay for downgrade to medical nephrology consultation, recommendations appreciated renal function slowly improving, likely new baseline blood pressure not controlled, adjusting regimen again today with help from nephrology Decrease long acting insulin QHS again to avoid low blood sugars long and short acting insulin for glucose control, adjusting regimen educated on importance of taking control of his blood sugars and hypertension to avoid renal failure patient does admit to missing several doses of medications in the past few days/ weeks. PRN medications for BP control Ok to leave out IV
[2019-06-18] MEDS: cloNIDine 0.2 MG TAB PO SCH ×3 (17:50→22:05)
[2019-06-18] MEDS ORDERED: Insulin Glargine 10 UNITS in Pre-Filled Syringe 1 EACH SC SCH (21:00)
[2019-06-18] MEDS: Famotidine 20 MG TAB PO SCH (22:05)
[2019-06-19 06:18] LABS: #Basophils 0.1 thou/uL (0.0-0.2); #Eosinphils 0.2 thou/uL (0.0-0.7); #Lymphocytes 1.3 thou/uL (1.20-3.40); #Monocytes 0.6 thou/uL (0.11-0.59); #Neutrophils 2.6 thou/uL (1.40-6.50); %Basophils 1.1 % (0.0-1.0); %Eosinophils 4.1 % (0.0-10.0); %Monocytes 12.3 % (0.0-10.0); %Neutrophils 55.5 % (42.0-75.0); Hemoglobin 10.8 g/dL (14.0-18.0); Mean Corpuscular HGB CONC 34.8 g/dL (32.0-36.0); Mean Corpuscular Hemoglobin 33.1 pg (27.0-31.0); Mean Corpuscular Volume 95.1 fL (78.0-98.0); Mean Platelet Volume 6.9 fL (7.4-10.4); Platelet Count 245 thou/uL (130-400); RBC Distribution Width 10.5 % (11.5-14.5); Red Blood Cell (RBC) Count 3.25 mill/uL (4.70-6.10); White Blood Cell (WBC) Count 4.7 thou/uL (4.8-10.8)
[2019-06-19 06:43] LABS: Anion Gap 10 mmol/L (10-20); BUN (Urea Nitrogen) 44 mg/dL (8.9-20.6); Calc. Creatinine Clearance 24 mL/min (70-130); Calcium 8.2 mg/dL (7.8-10.44); Carbon Dioxide 21 mmol/L (22-29); Chloride 106 mmol/L (98-107); Estimated GFR-MDRD 14; Glucose 243 mg/dL (70-105); Potassium 4.3 mmol/L (3.5-5.1); Sodium 133 mmol/L (136-145)
[2019-06-19] MEDS ORDERED: NIFEdipine XL 30 MG TAB PO SCH (07:45)
[2019-06-19] MEDS: Calcitriol 0.25 MCG CAP PO SCH (08:33)
[2019-06-19] MEDS: Aspirin 81 mg Enteric Coated Tablet PO SCH (08:33)
[2019-06-19] MEDS: Carvedilol 25 MG TAB PO SCH (08:34)
[2019-06-19] MEDS: cloNIDine 0.2 MG TAB PO SCH ×2 (08:34→12:38)
[2019-06-19] MEDS ORDERED: NIFEdipine XL 90 MG TAB PO SCH (09:00)
[2019-06-19] MEDS ORDERED: Insulin Glargine 18 UNITS in Pre-Filled Syringe 1 EACH SC SCH (09:00)
[2019-06-19] MEDS ORDERED: Minoxidil 2.5 MG TAB PO SCH (09:00)
--- NOTE | 2019-06-19 10:04 | PRG ---
DATE OF SERVICE: 06/19/2019 SUBJECTIVE: Mr. Jones is a 33-year-old black male, who is admitted for labile hypertension. He is also having chronic renal failure secondary to diabetic nephropathy. Of interest, this patient has juvenile-onset diabetes mellitus. Blood pressure has little improved with adjustment of BP medications. In addition, his renal function is noted to be at a GFR of 14 mL/minute. There is no indication for an emergent dialysis with this patient. He will be discharged today. He voices no new complaints. OBJECTIVE: VITAL SIGNS: Blood pressure 170/93, heart rate 91, respiratory rate 18, temperature 98.6, and pulse ox 97%. GENERAL: Noted to be awake, alert, comfortable, not in overt distress. SKIN: Adequate turgor. HEENT: He has pinkish conjunctivae. Anicteric sclerae. NECK: No neck mass. No carotid bruits. No JVD. CHEST: No deformities. LUNGS: Decreased breath sounds. HEART: Normal sinus rhythm. No murmur. No gallops. No rubs. ABDOMEN: Globular, soft, nontender. No masses. EXTREMITIES: No edema. No deformities. MEDICATIONS: Medications of June 19, 2019, reviewed. LABORATORY DATA: June 19, 2019; white count 4.7, hemoglobin 10.8. Sodium 133, potassium 4.3, chloride 106, carbon dioxide 21, BUN 44, creatinine 5.78, glucose 243, calcium 8.2, white count 4.7, hemoglobin 10.8. ASSESSMENT AND PLAN: 1. Chronic renal failure secondary to diabetic nephropathy - juvenile onset type and supportive care. I did explain to the patient that eventually he is looking at undergoing dialysis and/or transplantation. 2. Labile hypertension, improved. Continue current BP medications. 3. From a renal point of view, he can be discharged. The patient told to follow up with his craniologist. Job ID: [id number]
[2019-06-19 17:27] VITALS: BP 124/76; TEMP 97.2
--- NOTE | 2019-06-19 17:46 | DIS ---
DATE OF ADMISSION: 06/14/2019 DATE OF DISCHARGE: 06/19/2019 REASON FOR HOSPITALIZATION: Confusion and elevated blood pressure. SIGNIFICANT FINDINGS: The patient was found to have acute kidney injury on chronic kidney disease in addition to malignant hypertension. PROCEDURES PERFORMED/TREATMENTS RENDERED: The patient was admitted to medical unit with telemetry. He was seen and evaluated by Nephrology and had daily adjustments in blood pressure medications. The patient had daily adjustment in insulin regimen. The patient was recommended safe for discharge by Nephrology on 06/19/2019. CONDITION ON DISCHARGE: Stable. SPECIFIC INSTRUCTIONS FOR THE PATIENT/FAMILY: 1. The patient is recommended to take all medications as directed, to be re-evaluated by primary care physician and Nephrology in the outpatient clinic in the next 5 to 7 days. 2. The patient is recommended to keep a strict blood pressure and blood sugar log and take these log to his appointments with his primary care and his specialist. 3. The patient is recommended to take control of his medical conditions to avoid hemodialysis in the near future. 4. The patient is recommended to return to acute care hospital immediately if signs or symptoms return, worsen, or any other new symptoms occur. DISCHARGE MEDICATIONS: 1. Carvedilol 25 mg one tablet p.o. b.i.d. 2. Calcitriol 0.25 mcg one tablet p.o. daily. 3. Glucagon 1 mg intramuscular injection p.r.n. hypoglycemia. 4. Insulin: Lantus 10 units at bedtime and 18 units q.a.m. 5. Minoxidil 2.5 mg one tablet p.o. daily. 6. Nifedipine 90 mg one tablet p.o. daily. 7. Clonidine 0.2 mg one tablet p.o. four times per day. 8. Aspirin 81 mg one tablet p.o. daily. 9. Fish oil 1000 mg one tablet p.o. daily. HOSPITAL COURSE: Mr. Jones is a very pleasant 33-year-old male, who presents to the [facility] on 06/14/2019 with confusion and malignant hypertension. The patient was evaluated by Nephrology, please see full consultation notes from Nephrology for details. Please see full history and physical and progress notes for details. The patient with malignant hypertension in addition to acute kidney injury on chronic kidney disease. The patient had daily adjustment in blood pressure regimen. The patient's blood pressure was difficult to control, though he was adequately controlled by Nephrology on 06/19/2019. The patient recommended safe for discharge by Nephrology with close followup in the outpatient setting. The patient does not need hemodialysis at this point, however, both myself and Nephrology explicitly informed him that if things do not improve, he will likely be on hemodialysis in the near future. The patient understands this and states that he will return to acute care hospital immediately if signs or symptoms return, worsen, or any other new symptoms occur. The patient is recommended to take all medications as directed, to be re-evaluated by primary care physician and Nephrology in the outpatient clinic in the next 5 to 7 days. The patient is recommended to take control of his medical problems including blood pressure and his diabetes. The patient is recommended to return to acute care hospital immediately if signs or symptoms return, worsen, or any other new symptoms occur. Greater than 39 minutes spent coordinating care and discharge process for this patient. Job ID: [id number]
== END 2019-06-19 17:00 | disposition home or self-care (01) | DRG 304 ==
LOC: ERS 11:46 → ERHOLD 15:27 → 2NO 19:00
PROVIDERS: ADMIT Family Medicine; ATTEND Family Medicine
DX: I16.0 Hypertensive urgency (principal); N17.0 Acute kidney failure with tubular necrosis; I67.4 Hypertensive encephalopathy; I31.3 Pericardial effusion (noninflammatory); N25.81 Secondary hyperparathyroidism of renal origin; D63.1 Anemia in chronic kidney disease; E10.649 Type 1 diabetes mellitus with hypoglycemia without coma; E10.22 Type 1 diabetes mellitus with diabetic chronic kidney disease; E10.21 Type 1 diabetes mellitus with diabetic nephropathy; N18.3 Chronic kidney disease, stage 3 (moderate); I12.9 Hypertensive chronic kidney disease with stage 1 through stage 4 chronic kidney disease, or unspecified chronic kidney disease; I08.3 Combined rheumatic disorders of mitral, aortic and tricuspid valves
CPT/HCPCS: 36415; 36416; 76770; 80048; 80053; 81001; 82550; 83036; 83970; 84100; 84484; 85007; 85025; 85027; 90471; 90715; 93005; 93306; 93976; 96361; 96374; J1815

== ENCOUNTER 2019-06-24 17:06 | Inpatient (IN) | payer OTHER, SELFPAY ==
[2019-06-24] MEDS ORDERED: Dextrose 50% Abboject 50 ML SYRINGE ONE (17:22)
--- NOTE | 2019-06-24 17:54 | RAD ---
EXAM: Single view of the chest HISTORY: Altered mental status and lethargy COMPARISON: 10/07/2017 FINDINGS: Single view of the chest shows a normal sized cardiomediastinal silhouette. There is no zaina dence of consolidation, mass, or pleural effusion. The bones are unremarkable. IMPRESSION: No evidence of acute cardiopulmonary disease
[2019-06-24 18:34] LABS: #Basophils 0.1 thou/uL (0.0-0.2); #Lymphocytes 0.9 thou/uL (1.20-3.40); #Monocytes 0.2 thou/uL (0.11-0.59); #Neutrophils 6.1 thou/uL (1.40-6.50); %Basophils 0.9 % (0.0-1.0); %Eosinophils 0.4 % (0.0-10.0); %Monocytes 2.5 % (0.0-10.0); %Neutrophils 84.3 % (42.0-75.0); Mean Corpuscular HGB CONC 34.5 g/dL (32.0-36.0); Mean Corpuscular Hemoglobin 32.6 pg (27.0-31.0); Mean Corpuscular Volume 94.3 fL (78.0-98.0); Mean Platelet Volume 7.1 fL (7.4-10.4); Platelet Count 336 thou/uL (130-400); RBC Distribution Width 10.5 % (11.5-14.5); Red Blood Cell (RBC) Count 3.98 mill/uL (4.70-6.10); White Blood Cell (WBC) Count 7.2 thou/uL (4.8-10.8)
[2019-06-24 18:57] LABS: ALT (SGPT) 21 U/L (8-55); AST (SGOT) 21 U/L (5-34); Albumin 4.2 g/dL (3.5-5.0); Alkaline Phosphatase 104 U/L (40-110); Anion Gap 19 mmol/L (10-20); BUN (Urea Nitrogen) 59 mg/dL (8.9-20.6); Bilirubin, Total 0.6 mg/dL (0.2-1.2); CK (CPK) 362 U/L (30-200); Calc. Creatinine Clearance 0 mL/min (70-130); Calcium 9.2 mg/dL (7.8-10.44); Carbon Dioxide 19 mmol/L (22-29); Chloride 105 mmol/L (98-107); Estimated GFR-MDRD 12; Globulin 3.9 g/dL (2.4-3.5); Glucose 116 mg/dL (70-105); Magnesium 2.5 mg/dL (1.6-2.6); Potassium 3.9 mmol/L (3.5-5.1); Protein, Total 8.1 g/dL (6.0-8.3); Sodium 139 mmol/L (136-145)
[2019-06-24] MEDS ORDERED: Acetaminophen 325 MG TAB PO PRN (19:56)
[2019-06-24] MEDS ORDERED: Dextrose 50% Abboject 50 ML SYRINGE SLOW IVP PRN (19:57)
[2019-06-24] MEDS ORDERED: Dextrose 5% in Water 1,000 ML IV PRN (19:57)
[2019-06-24] MEDS ORDERED: Dextrose 5 % And 0.9 % NaCl 1,000 ML IV SCH (20:00)
[2019-06-24] MEDS: Carvedilol 25 MG TAB PO SCH (22:18)
[2019-06-24] MEDS: cloNIDine 0.2 MG TAB PO SCH (22:18)
[2019-06-24] MEDS: Heparin 5,000 UNITS/ML VIAL SC SCH (22:19)
[2019-06-25 00:35] VITALS: BMI 29.1
--- NOTE | 2019-06-25 01:36 | HP ---
CHIEF COMPLAINT: Low blood sugar. HISTORY OF PRESENT ILLNESS: The patient is a 33-year-old male who is a type 1 diabetic who recently was discharged from the hospital on 06/19 for confusion, elevated blood pressure. 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 The patient states that he only takes Lantus normally 18 units in the morning and 10 at night, which was decreased to 16 units in the morning and 10 at night. The patient stated that this morning when he woke up, his sugar was around 160. He ate a hash brown. Later on, he rechecked his blood sugar at 10 and his sugar was 212, at which time he took about 16 units of his Lantus and then went to work. He felt a little strange. However, he does not recall passing out and the next thing he remembers is waking up in the ER. Per the EMS notes, his blood sugar in the EMS was undetectable. The patient currently denies any fevers, chills, nausea, vomiting, or diarrhea. The patient states that he needs to eat more regularly in order to prevent hypoglycemia again. PAST MEDICAL HISTORY: 1. He has a history of diabetes type 1. 2. He has chronic kidney disease, stage 4 to 5. 3. Hypertension, labile. 4. Hyperlipidemia. PAST SURGICAL HISTORY: He has status post right knee repair. FAMILY HISTORY: No inheritable disease. SOCIAL HISTORY: He drinks about 1-2 times a month. Denies any drug use or any tobacco use. He is a full code. Lives with his family. MEDICATIONS: 1. Carvedilol 25 mg twice a day. 2. Calcitriol 0.25 mcg daily. 3. Lantus 10 units at night and 16 units in the morning. 4. Minoxidil 2.5 daily. 5. daily. 6. Clonidine 0.2 mg four times a day. 7. Aspirin 81 mg daily. 8. Fish oil. REVIEW OF SYSTEMS: All negative except for the ones mentioned above in the HPI. ALLERGIES: NO KNOWN DRUG ALLERGIES. PHYSICAL EXAMINATION: VITAL SIGNS: Temperature of 97.5, respirations 16, O2 saturation 99% on room air, heart rate 95, blood pressure 135/94. GENERAL: He is awake, alert, and oriented x3. Does not appear in any distress. HEENT: Normocephalic, atraumatic. No lymphadenopathy noted. Pupils are equal and reactive to light. CV: S1 and S2 present. No murmurs, rubs, or gallops. LUNGS: Clear to auscultation. No rhonchi or wheezes noted. ABDOMEN: Soft and nontender. Bowel sounds are present x2. EXTREMITIES: No edema. Pedal pulses are present x2. NEUROVASCULAR: No focal deficits noted. SKIN: No cuts, lesions, or bruises noted. ASSESSMENT AND PLAN: The patient is a very pleasant 33-year-old male who presents to the hospital with hypoglycemia. 1. Hyperglycemia. This could be secondary to not eating enough food versus not in an increased need of his Lantus. The patient does have a creatinine of 6.77, most approachable to possible dialysis in the near future. He may require a lower dose of insulin. I will check a hemoglobin A1c if it is already not checked. I will check sugars every 2 hours and will feed him a diabetic diet and continue to monitor. 2. Acute kidney injury on chronic kidney disease, stage 4. We will continue to hydrate gently and avoid nephrotoxins. I am hoping that this will resolve. 3. Hypertension. We will continue his home medications. 4. Diabetes. Again, we will check the patient's blood sugar every 2 hours and continue to monitor and hold off on any of the insulin for now. I will start him on some low-dose insulin in the morning given the fact that he is a type 1 diabetic. 5. Deep venous thrombosis prophylaxis. We will put the patient on SCD. Job ID: [id number]
[2019-06-25 05:50] LABS: #Eosinphils 0.1 thou/uL (0.0-0.7); #Lymphocytes 1.4 thou/uL (1.20-3.40); #Monocytes 0.5 thou/uL (0.11-0.59); #Neutrophils 3.9 thou/uL (1.40-6.50); %Basophils 0.6 % (0.0-1.0); %Eosinophils 1.3 % (0.0-10.0); %Lymphocytes 23.1 % (21.0-51.0); %Monocytes 8.5 % (0.0-10.0); %Neutrophils 66.6 % (42.0-75.0); Hemoglobin 10.2 g/dL (14.0-18.0); Mean Corpuscular HGB CONC 35.4 g/dL (32.0-36.0); Mean Corpuscular Hemoglobin 33.1 pg (27.0-31.0); Mean Corpuscular Volume 93.4 fL (78.0-98.0); Mean Platelet Volume 6.8 fL (7.4-10.4); Platelet Count 263 thou/uL (130-400); RBC Distribution Width 10.5 % (11.5-14.5); Red Blood Cell (RBC) Count 3.09 mill/uL (4.70-6.10); White Blood Cell (WBC) Count 5.9 thou/uL (4.8-10.8)
[2019-06-25 06:20] LABS: ALT (SGPT) 14 U/L (8-55); AST (SGOT) 13 U/L (5-34); Albumin 3.1 g/dL (3.5-5.0); Alkaline Phosphatase 77 U/L (40-110); Anion Gap 12 mmol/L (10-20); BUN (Urea Nitrogen) 56 mg/dL (8.9-20.6); Bilirubin, Total 0.5 mg/dL (0.2-1.2); Calc. Creatinine Clearance 21 mL/min (70-130); Carbon Dioxide 21 mmol/L (22-29); Chloride 108 mmol/L (98-107); Estimated GFR-MDRD 12; Globulin 2.8 g/dL (2.4-3.5); Glucose 149 mg/dL (70-105); Potassium 3.8 mmol/L (3.5-5.1); Protein, Total 5.9 g/dL (6.0-8.3); Sodium 137 mmol/L (136-145)
[2019-06-25] MEDS: Calcitriol 0.25 MCG CAP PO SCH (08:19)
[2019-06-25] MEDS: Carvedilol 25 MG TAB PO SCH ×2 (08:19→21:01)
[2019-06-25] MEDS: Heparin 5,000 UNITS/ML VIAL SC SCH (08:20)
[2019-06-25] MEDS: cloNIDine 0.2 MG TAB PO SCH ×4 (08:20→21:01)
[2019-06-25] MEDS ORDERED: Aspirin 81 mg Enteric Coated Tablet PO SCH (09:00)
[2019-06-25] MEDS: Minoxidil 2.5 MG TAB PO SCH (10:25)
[2019-06-25] MEDS: NIFEdipine XL 90 MG TAB PO SCH (10:25)
[2019-06-25] MEDS ORDERED: PHENYLEPHRINE HCL IV SCH (14:15)
[2019-06-25] MEDS ORDERED: Sodium Bicarbonate 150 MEQ in Dextrose 5% in Water 500 ML IV SCH (14:15)
[2019-06-25] MEDS: Sodium Bicarbonate 75 MEQ in Sodium Chloride 0.45% 1,000 ML IV SCH ×2 (14:15→21:06)
[2019-06-25] MEDS ORDERED: SODIUM CHLORIDE 0.9% IV SCH (14:15)
[2019-06-25] MEDS ORDERED: Morphine 2 MG/ML SYRINGE SLOW IVP PRN (14:23)
[2019-06-25] MEDS ORDERED: PHENYLEPHRINE HCL FS SCH (14:30)
[2019-06-25] MEDS ORDERED: SODIUM CHLORIDE 0.9% FS SCH (14:30)
[2019-06-25] MEDS ORDERED: hydrALAZINE 20 MG/ML VIAL SLOW IVP SCH (14:45)
[2019-06-25] MEDS ORDERED: hydrALAZINE 20 MG/ML VIAL SLOW IVP PRN (14:48)
[2019-06-25] MEDS ORDERED: Labetalol HCl 100 MG/20 ML VIAL SLOW IVP PRN (14:48)
[2019-06-25] MEDS ORDERED: traMADol HCl 50 MG TAB PO PRN ×2 (14:49)
[2019-06-25] MEDS ORDERED: Acetaminophen/Codeine 30-300mg Tablet PO PRN ×2 (14:49)
[2019-06-25] MEDS ORDERED: Labetalol HCl 100 MG/20 ML VIAL ONE (14:54)
[2019-06-25] MEDS ORDERED: Labetalol HCl 100 MG/20 ML VIAL SLOW IVP SCH (15:00)
[2019-06-25] MEDS ORDERED: CEFAZOLIN 1 GM in Sodium Chloride 0.9% 100 ML IVPB SCH (15:15)
[2019-06-25 15:39] LABS: Actual Bicarbonate (HCO3a) 18.1 mEq/L (22-28); Base Excess (BEa) -24.1 mEq/L (-2.0 to +3.0); Calcium, Ionized 1.02 mmol/L (1.12-1.30); Carboxyhemoglobin (COHb) 1.2 gm% (0.0-3.0); Hemoglobin (Hb) 17.4 g/dL (14.0-18.0); Potassium - ABG Lab 7.91 mmol/L (3.70-5.30)
[2019-06-25 15:44] LABS: pH, Arterial 6.63 (7.35-7.45)
[2019-06-25 15:45] LABS: CO2 Tension 175.9 mmHg (35.0-45.0); O2 Tension (PaO2) 14.6 mmHg (80.0-100.0)
[2019-06-25 15:46] LABS: ALV-art Gradient -84.745 (0-20); Puncture Site PENAL
--- NOTE | 2019-06-25 18:01 | PDOC.HOSPP ---
- Subjective Encounter Date: 06/25/19 Encounter Time: 17:59 Subjective: Pt seen for followup re: priapism. Pt reports feeling better. - Objective Vital Signs & Weight: Vital Signs (12 hours) Temp Pulse Resp BP BP Pulse Ox 06/25/19 17:30 150/82 H 06/25/19 17:24 98.4 F 103 H 20 150/82 H 96 06/25/19 14:47 106 H 179/130 H 06/25/19 10:25 94 143/80 H 06/25/19 10:00 98 F 94 18 146/81 H 96 06/25/19 08:20 119/74 06/25/19 07:05 98.3 F 83 17 119/74 94 L Weight Weight 203 lb 4.8 oz Result Diagrams: 06/25/19 05:39 06/25/19 05:39 Additional Labs: Accuchecks 06/25/19 06/25/19 06/25/19 15:57 12:15 10:26 POC Glucose 295 H 232 H 114 H 06/25/19 06/25/19 06/25/19 08:20 06:40 04:42 POC Glucose 96 120 H 181 H 06/25/19 06/24/19 06/24/19 02:14 23:51 21:31 POC Glucose 189 H 196 H 123 H 06/24/19 18:54 POC Glucose 122 H Labs and MARs reviewed by fl Hospitalist ROS - Review of Systems Respiratory: denies: cough, dry, shortness of breath, hemoptysis, SOB with excertion, pleuritic pain, sputum, wheezing Cardiovascular: denies: chest pain, palpitations, orthopnea, paroxysmal noc. dyspnea, edema, light headedness Genitourinary: reports: other (priapism) - Medication Medications: Active Medications Generic Name Dose Route Start Last Admin Trade Name Freq PRN Reason Stop Dose Admin Calcitriol 0.25 mcg 06/25/19 09:00 06/25/19 08:19 Rocaltrol PO 0.25 mcg DAILY FLORENTINO Administration Carvedilol 25 mg 06/24/19 21:00 06/25/19 08:19 Coreg PO 25 mg BID FLORENTINO Administration Clonidine 0.2 mg 06/24/19 21:00 06/25/19 17:30 Catapres PO 0.2 mg QID FLORENTINO Administration Minoxidil 2.5 mg 06/25/19 09:00 06/25/19 10:25 Minoxidil PO 2.5 mg DAILY FLORENTINO Administration Morphine Sulfate 2 mg 06/25/19 14:23 06/25/19 14:42 Morphine SLOW IVP 2 mg Q2H PRN Administration Pain Nifedipine 90 mg 06/25/19 09:00 06/25/19 10:25 Procardia Xl PO 90 mg DAILY FLORENTINO Administration Sodium Chloride 10 ml 06/24/19 21:00 06/25/19 08:25 Flush - Normal Saline IVF Not Given Q12HR FLORENTINO - Exam General Appearance: NAD Eye: anicteric sclera ENT: no oropharyngeal lesions Neck: supple, no thyromegaly Heart: RRR, no rubs Respiratory: CTAB, no ronchi Gastrointestinal: soft, non-tender Extremities: no cyanosis, no clubbing Musculoskeletal: normal tone, normal strength Psychiatric: normal affect, normal behavior Hosp A/P (1) Priapism Code(s): N48.30 - PRIAPISM, UNSPECIFIED Status: Acute (2) Sickle cell anemia with crisis Code(s): D57.00 - HB-SS DISEASE WITH CRISIS, UNSPECIFIED Status: Acute (3) Hypertensive urgency Code(s): I16.0 - HYPERTENSIVE URGENCY Status: Acute (4) CKD (chronic kidney disease) stage 3, GFR 30-59 ml/min Code(s): N18.3 - CHRONIC KIDNEY DISEASE, STAGE 3 (MODERATE) Status: Chronic (5) 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 PRN antihypertensives and pain medications for elevated blood pressure and pain. Blood sugars trending up, start Lantus at decreased dose. Consult heme-onc re: sickle cell disease.
[2019-06-25] MEDS: HumaLOG 300 UNITS/3 ML VIAL SC PRN ×3 (18:29→22:55)
[2019-06-25] MEDS ORDERED: FLU VACC QS2019-20(6MOS UP)/PF 60 MCG/0.5 ML SYRINGE IM ONE (21:00)
[2019-06-25] MEDS: Baclofen 10 MG TAB PO SCH (21:01)
[2019-06-25] MEDS: Insulin Glargine 8 UNITS in Pre-Filled Syringe 1 EACH SC SCH (21:03)
[2019-06-26 03:08] LABS: Amphetamine Not Detected (NotDetected); Barbiturates Screen Not Detected (NotDetected); Benzodiazepine Screen Not Detected (NotDetected); Cocaine Metabolite Screen Not Detected (NotDetected); Medtox Control Line Valid? VALID (VALID); Medtox Reader # READER 1; Methadone Not Detected (NotDetected); Methamphetamine Not Detected (NotDetected); Opiate Screen Detected (NotDetected); Oxycodone Screen Not Detected (NotDetected); Phencyclidine (PCP) Not Detected (NotDetected); THC/Cannabinoid Screen Not Detected (NotDetected); Tricyclic Screen Not Detected (NotDetected)
[2019-06-26] MEDS: Sodium Bicarbonate 75 MEQ in Sodium Chloride 0.45% 1,000 ML IV SCH ×3 (04:30→19:43)
[2019-06-26 06:02] LABS: #Eosinphils 0.1 thou/uL (0.0-0.7); #Lymphocytes 1.4 thou/uL (1.20-3.40); #Monocytes 0.4 thou/uL (0.11-0.59); #Neutrophils 4.2 thou/uL (1.40-6.50); %Basophils 0.7 % (0.0-1.0); %Eosinophils 1.3 % (0.0-10.0); %Lymphocytes 23.2 % (21.0-51.0); %Monocytes 6.8 % (0.0-10.0); Hemoglobin 9.4 g/dL (14.0-18.0); Mean Corpuscular HGB CONC 34.8 g/dL (32.0-36.0); Mean Corpuscular Hemoglobin 32.6 pg (27.0-31.0); Mean Corpuscular Volume 93.8 fL (78.0-98.0); Platelet Count 260 thou/uL (130-400); RBC Distribution Width 10.5 % (11.5-14.5); Red Blood Cell (RBC) Count 2.89 mill/uL (4.70-6.10); White Blood Cell (WBC) Count 6.2 thou/uL (4.8-10.8)
[2019-06-26] MEDS: Carvedilol 25 MG TAB PO SCH ×2 (09:52→21:51)
[2019-06-26] MEDS: Calcitriol 0.25 MCG CAP PO SCH (09:52)
[2019-06-26] MEDS: Baclofen 10 MG TAB PO SCH ×2 (09:52→21:51)
[2019-06-26] MEDS: NIFEdipine XL 90 MG TAB PO SCH (09:52)
[2019-06-26] MEDS: Minoxidil 2.5 MG TAB PO SCH (09:54)
[2019-06-26] MEDS: Insulin Glargine 10 UNITS in Pre-Filled Syringe 1 EACH SC SCH (09:55)
[2019-06-26] MEDS: cloNIDine 0.2 MG TAB PO SCH ×4 (09:55→21:51)
--- NOTE | 2019-06-26 11:54 | PRG ---
DATE OF SERVICE: 06/26/2019 SUBJECTIVE: The patient is without complaints. Denies recurrence of stuttering priapism. OBJECTIVE: VITAL SIGNS: Stable. He has not been compliant with nasal cannula as I informed the patient had importance of saturation greater than 96%. Temperature 98.6, pulse 97, 92% on room air. ABDOMEN: Soft, nontender, nondistended. : Coban penile dressing was removed with minimal ecchymosis. No significant hematoma of concern. Detumescence. No recurrence of priapism. PERTINENT LABORATORY DATA: Hemoglobin is 9.4, admitting hemoglobin is 13, hemoglobin S positive. Creatinine 0.4. Blood gas from aspiration of penile corporal yesterday demonstrates venous changes consistent with ischemic priapism Urine tox screen negative except for opioids IMPRESSION AND PLAN: 1. Mr. [place] is a 33-year-old male admitted for hypoglycemia on insulin with history of type 1 diabetes. Followed by endocrinology at [facility] 2. Chronic renal disease stage 4/[address] Ramirez. 3. History of hypertension, labile. 4-Hgbs positive electrophoresis pending, he monk consultation pending; sickle cell workup initiated as he was seen yesterday for ischemic priapism; he denied prior history of sickle cell disease or sickle cell trait 5. Postoperative day #1, irrigation and aspiration of ischemic priapism Upon further history, he may have had some stuttering priapism in the past, however, never sought care.. Upon further history, he relates a vague history of possibly being told regarding sickle cell trait. His priapism was successfully treated yesterday at bedside with irrigation and aspiration with phenylephrine. Importance of maintaining oxygen level >93% As such, nasal cannula advised. Hemoglobin should be kept ideally around 10 to 12, avoid hemoglobin above 12 to prevent hyperviscosity syndrome. recent hemoglobin likely had some decrease as he is on aggressive IV fluids at 150 mL an hour. continue to monitor CBC, if anemia, consideration for transfusion of sickle cell negative, leukocyte depleted transfusion. If he has no recurrence tomorrow and cleared by Hematology, Medical Service can be discharged with close followup with me. Continue baclofen, as it has success in spinal inhibition of stuttering priapism. Consideration for hydroxyurea to increase hemoglobin F. Job ID: [id number] [facility]
[2019-06-26] MEDS: HumaLOG 300 UNITS/3 ML VIAL SC PRN ×2 (12:27→17:34)
--- NOTE | 2019-06-26 19:18 | PDOC.HOSPP ---
- Subjective Encounter Date: 06/26/19 Encounter Time: 11:00 Subjective: Pt seen for followup re; labile blood sugars. Feels better. - Objective Vital Signs & Weight: Vital Signs (12 hours) Temp Pulse Resp BP BP Pulse Ox 06/26/19 17:31 145/79 H 06/26/19 16:00 97.3 F L 93 16 129/80 93 L 06/26/19 12:30 119/73 06/26/19 11:00 98.5 F 99 18 134/80 97 06/26/19 09:55 151/82 H 06/26/19 09:52 97 151/82 H 06/26/19 08:00 98.6 F 95 18 137/81 92 L Weight Weight 203 lb 4.8 oz I&O: 06/25/19 06/26/19 06/27/19 06:59 06:59 06:59 Intake Total 2295 Balance 2295 Result Diagrams: 06/26/19 05:44 06/25/19 05:39 Additional Labs: Accuchecks 06/26/19 06/26/19 06/26/19 15:58 11:49 05:55 POC Glucose 311 H 483 H 274 H 06/26/19 06/26/19 06/26/19 04:23 02:34 02:07 POC Glucose 242 H 99 Less than 35 L* 06/25/19 06/25/19 06/25/19 23:50 22:36 19:44 POC Glucose 119 H 266 H 318 H Labs and MARs reviewed by ut Hospitalist ROS - Review of Systems Cardiovascular: denies: chest pain, palpitations, orthopnea, paroxysmal noc. dyspnea, edema, light headedness Gastrointestinal: denies: nausea, vomiting, abdominal pain, diarrhea, constipation, melena, hematochezia - Medication Medications: Active Medications Generic Name Dose Route Start Last Admin Trade Name Freq PRN Reason Stop Dose Admin Baclofen 10 mg 06/25/19 21:00 06/26/19 09:52 Lioresal PO 10 mg BID FLORENTINO Administration Calcitriol 0.25 mcg 06/25/19 09:00 06/26/19 09:52 Rocaltrol PO 0.25 mcg DAILY FLORENTINO Administration Carvedilol 25 mg 06/24/19 21:00 06/26/19 09:52 Coreg PO 25 mg BID FLORENTINO Administration Clonidine 0.2 mg 06/24/19 21:00 06/26/19 17:31 Catapres PO 0.2 mg QID FLORENTINO Administration Sodium Bicarbonate 75 meq/ 1,075 mls @ 150 mls/hr 06/25/19 14:15 06/26/19 12: 25 Sodium Chloride IV 1,075 mls .Q7H10M FLORENTINO Administration Insulin Glargine 8 units/ 0.08 mls @ 0 mls/hr 06/25/19 21:00 06/25/19 21:03 Miscellaneous Medication SC 0.08 mls HS FLORENTINO Administration Insulin Glargine 10 units/ 0.1 mls @ 0 mls/hr 06/26/19 09:00 06/26/19 09:55 Miscellaneous Medication SC 0.1 mls QAM FLORENTINO Administration Insulin Human Lispro 0 units 06/25/19 17:41 06/26/19 17:34 Humalog SC 5 unit .MILD SLIDING SCALE PRN Administration Mild Correctional Scale Minoxidil 2.5 mg 06/25/19 09:00 06/26/19 09:54 Minoxidil PO 2.5 mg DAILY FLORENTINO Administration Morphine Sulfate 2 mg 06/25/19 14:23 06/25/19 14:42 Morphine SLOW IVP 2 mg Q2H PRN Administration Pain Nifedipine 90 mg 06/25/19 09:00 06/26/19 09:52 Procardia Xl PO 90 mg DAILY FLORENTINO Administration Sodium Chloride 10 ml 06/24/19 21:00 06/26/19 12:32 Flush - Normal Saline IVF Not Given Q12HR [facility] - Exam General Appearance: NAD, awake alert Eye: anicteric sclera ENT: normocephalic atraumatic, moist mucosa Neck: supple, no JVD Heart: RRR Respiratory: CTAB, no wheezes Gastrointestinal: soft, non-tender, normal bowel sounds Psychiatric: normal affect, normal behavior Hosp A/P (1) Abnormal blood sugar Code(s): R73.09 - OTHER ABNORMAL GLUCOSE Status: Acute (2) Priapism Code(s): N48.30 - PRIAPISM, UNSPECIFIED Status: Acute (3) Sickle cell anemia with crisis Code(s): D57.00 - HB-SS DISEASE WITH CRISIS, UNSPECIFIED Status: Acute (4) Hypertensive urgency Code(s): I16.0 - HYPERTENSIVE URGENCY Status: Acute (5) CKD (chronic kidney disease) stage 3, GFR 30-59 ml/min Code(s): N18.3 - CHRONIC KIDNEY DISEASE, STAGE 3 (MODERATE) Status: Chronic (6) 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 Pt at risk for severe hypoglycemia , unable to discharge home today. Pt had procedure by urology service yesterday for priapism, improved. PRN antihypertensives and pain medications for elevated blood pressure and pain. Consulted heme-onc re: sickle cell disease.
--- NOTE | 2019-06-26 21:30 | CON ---
DATE OF CONSULTATION: REASON FOR CONSULTATION: Priapism and sickle cell trait. HISTORY OF PRESENT ILLNESS: A 33-year-old male with type 1 diabetes and potential history of sickle cell trait, presenting to the hospital with hypoglycemia and subsequently found to have priapism. The patient was evaluated by Dr. Riley and had irrigation and aspiration of ischemic priapism. The patient does report potential stuttering priapism; however, history is not clear, though he does state he has never had an episode like this. He says first time he noticed anything regarding priapism was perhaps only one year ago. The patient has been started on baclofen, has been receiving IV fluids and is on oxygen due to his priapism. His hypoglycemia has improved, but is still low today. The patient states many years ago he was told he had sickle cell trait, but has never had any problems from it. His mother who is at the bedside states she does not have it and they are unclear about his father, who must have either sickle cell, carries at least one sickle cell gene. The patient's sickle cell screen in the hospital was positive and hemoglobin electrophoresis has been sent. The patient has never had any pain crisis or other problems and has never been told he was anemic in the past. PAST MEDICAL HISTORY: Sickle cell trait, type 1 diabetes, CKD, hypertension, hyperlipidemia. PAST SURGICAL HISTORY: Right knee repair. FAMILY HISTORY: Some form of sickle cell disorder likely in his father. SOCIAL HISTORY: Alcohol 1 to 2 times a month. No drug or alcohol use. MEDICATIONS: Current medications reviewed. REVIEW OF SYSTEMS: Ten-point review of systems negative except as per HPI. ALLERGIES: NO KNOWN DRUG ALLERGIES. PHYSICAL EXAMINATION: GENERAL APPEARANCE: The patient is awake, alert, and oriented x3, not in any acute distress. HEENT: Normocephalic and atraumatic. CARDIOVASCULAR: S1 and S2. No tachycardia. LUNGS: Clear and nonlabored. The patient is off and on of his nasal cannula during conversation. ABDOMEN: Soft, nondistended, nontender. SKIN: No bruises. NEUROLOGIC: Cranial nerves 2 through 12 was grossly intact. LABORATORY DATA: White blood cells 6.2, platelets 260; hemoglobin 13.0 on admission, currently down to 9.4 after IV fluids; creatinine 6.48; blood sugar 22 on admission, currently 483; potassium 3.8, calcium 8.0. Toxicology positive for opiates. ASSESSMENT AND PLAN: A 33-year-old male presenting with hyperglycemia, priapism. The patient's priapism is likely secondary to sickle cell trait. Hemoglobin electrophoresis is currently pending to confirm this. The patient's priapism has resolved, but there is still receiving fluids and oxygen, which can be titrated off at this time. He has never had pain crisis and has very mild anemia, which is more likely secondary to his severe chronic kidney disease and sickle cell trait. Priapism is much more common in sickle cell disease but can be seen in sickle cell trait, although much less common. The patient is currently on baclofen and this is planned to be continued. The evidence for Hydrea in priapism is not as robust as with pain crisis and acute chest, however, it can be used. Typically, we recommend Hydrea in patients who have stuttering priapism or have 2-3 episodes of major priapism in a year. The patient states he has only had a few episodes starting last year and this is the only major episode, unclear if he has true stuttering priapism. If he does not have stuttering priapism, then I would not recommend Hydrea at this time given he has only had one major episode of severe priapism. If he truly does have stuttering priapism, which is hard to gather from his personal account of his history, then I would recommend Hydrea titrated to maximum tolerated dose based on his blood counts. If he does start Hydrea, he needs to be followed by sickle cell musculoskeletal physician to monitor his blood counts and side effects from Hydrea. There is no Sickle Cell Center here, would recommend him establishing care with one in the surrounding area and may only have to be seen in couple of times a year, can potentially go to [place], [place], or [place]. I discussed this with the patient and his mother at the bedside. Job ID: [id number] [facility]
[2019-06-26] MEDS: Insulin Glargine 8 UNITS in Pre-Filled Syringe 1 EACH SC SCH (21:56)
[2019-06-27] MEDS: Sodium Bicarbonate 75 MEQ in Sodium Chloride 0.45% 1,000 ML IV SCH ×2 (02:00→10:13)
[2019-06-27 06:11] LABS: #Eosinphils 0.1 thou/uL (0.0-0.7); #Lymphocytes 1.6 thou/uL (1.20-3.40); #Monocytes 0.6 thou/uL (0.11-0.59); #Neutrophils 3.7 thou/uL (1.40-6.50); %Basophils 0.2 % (0.0-1.0); %Lymphocytes 26.5 % (21.0-51.0); %Monocytes 9.7 % (0.0-10.0); %Neutrophils 61.6 % (42.0-75.0); Hemoglobin 9.7 g/dL (14.0-18.0); Mean Corpuscular HGB CONC 35.2 g/dL (32.0-36.0); Mean Corpuscular Hemoglobin 33.1 pg (27.0-31.0); Mean Corpuscular Volume 94.1 fL (78.0-98.0); Mean Platelet Volume 7.3 fL (7.4-10.4); Platelet Count 295 thou/uL (130-400); RBC Distribution Width 10.6 % (11.5-14.5); Red Blood Cell (RBC) Count 2.94 mill/uL (4.70-6.10)
--- NOTE | 2019-06-27 07:43 | PRG ---
DATE OF SERVICE: 06/27/2019 SUBJECTIVE: The patient resting. OBJECTIVE: VITAL SIGNS: Vital signs are stable, he is afebrile, 97% on 2 L of nasal cannula. GENERAL: The patient arousable. ABDOMEN: Soft, nontender, nondistended. Upon exam, he does have rigid tumescence. He states that he has to void. I did check patient's status again after he voided, he has detumescence after voiding. Therefore, we will continue to observe closely. PERTINENT LABORATORY DATA: White count is 6, hemoglobin 9.7. Electrophoresis is pending. IMPRESSION AND PLAN: 1. Mr. [place] is a 33-year-old male with history of diabetes, insulin dependent , followed by Endocrinology at [facility], admitted for labile blood sugars, hypoglycemia, currently being monitored, appears to be improved. 2. Hypertension, labile as well. Currently, blood pressure is stable. 3. Sickle cell trait versus sickle cell disease. Final electrophoresis is pending. Appreciate Heme-Onc input. 4. Urologic issues of priapism. Irrigation and aspiration performed Thursday with resolution. He had a morning erection today, spontaneously resolved after voiding. We will continue to observe. Continue baclofen before spinal inhibition of nocturnal tumescence. Input from Hematology appreciated regarding options of hydroxyurea. He needs establishment with sickle cell facility, appears to be none in [place] [facility]. We will discuss with case management as the patient needs to be established with Sickle Cell Center. If no significant recurrence of priapism, the patient can be discharged with baclofen and close followup with me. Please inform if the patient is going to be discharged regarding disposition and close followup with . Continue Baclofen Job ID: [id number] [facility]
--- NOTE | 2019-06-27 08:39 | CON ---
DATE OF CONSULTATION: 06/25/2019 REASON FOR CONSULTATION: Prolonged erection. REASON FOR ADMISSION: Hypoglycemia, renal insufficiency/failure. HISTORY OF PRESENT ILLNESS: Mr. [place] is a pleasant 33-year-old male with a history of type 1 diabetes, recently admitted on June 19, 2019 for hypertension, confusion. He was discharged with multiple blood pressure medications include minoxidil, nifedipine, clonidine, carvedilol. He is seen by Dr. Ramirez for stage 4 to 5 renal insufficiency/chronic kidney disease. He denies illicit drug use, intracorporeal injection therapy, prior history of priapism, sickle cell disease, or injection therapy for impotence. He states that he has not been sexually active for approximately 1 year and previously had no prior penile curvature, difficulty obtain or sustaining an erection. The patient states that he was resting, woke up spontaneously due to painful erection began around 11:00 a.m. I was called recently for prolonged erection as nurse was concerned about the patient's well-being. The patient is currently resting, however, somewhat distraught as he has an erection. PAST MEDICAL HISTORY: Type 1 diabetes, chronic kidney disease stage 4 to 5, hypertension, hyperlipidemia. PAST SURGICAL HISTORY: Right knee surgery. FAMILY HISTORY: Noncontributory. He denies family history of sickle cell disease or sickle cell trait. SOCIAL HISTORY: Drinks 1 to 2 times per month. Denies illicit drug use, intracorporeal injection, or [id number] erection medications. CURRENT MEDICATIONS: Include carvedilol, calcitriol, glucagon, insulin, minoxidil, nifedipine, clonidine, aspirin 81. He has been on heparin t.i.d. for DVT prophylaxis and fish oil. REVIEW OF SYSTEMS: A 10-point review of systems is as above, otherwise noncontributory. PHYSICAL EXAMINATION: VITAL SIGNS: Stable. Blood pressure is 143/80. GENERAL: The patient appears to be in no acute distress per se. HEENT: Unremarkable. HEART: Regular rate. LUNGS: Clear. ABDOMEN: Soft, nontender, nondistended. No rigidity. No rebound. : Circumcised phallus. Meatus is grossly unremarkable. He has findings consistent with full tumescence, glans soft consistent with ischemic priapism. Testes are descended with no evidence of intratesticular mass. EXTREMITIES: No cyanosis, clubbing, or edema. PERTINENT LABORATORY DATA: Hemoglobin A1c of 8.0. White count 5, hemoglobin 10.2, platelet 263. Creatinine is 6.48, which is his baseline. UA on previous admission on June 15 demonstrates pH of 7, 200 of protein, no rbc's or white blood cells. Renal ultrasound on admission, 06/14/2019, demonstrates no evidence of hydronephrosis. No renal artery stenosis or obstruction. Bilateral ureteral jets seen. IMPRESSION AND PLAN: Mr. [place] is a 33-year-old male with history of hypertension, chronic kidney disease stage 4 to 5, type 1 diabetes, currently admitted for hypoglycemia. Patient is being closely monitored for his blood sugar, idiopathic priapism. The patient needs full workup, hematologic, including hemoglobin S. He denies [id number] illicit drug use that pertains to impotence medication. The patient was advised regarding irrigation and aspiration of ischemic priapism. Indications reviewed. He desires to proceed. Job ID: [id number] [facility]
[2019-06-27] MEDS: cloNIDine 0.2 MG TAB PO SCH ×2 (09:16→12:42)
[2019-06-27] MEDS: Calcitriol 0.25 MCG CAP PO SCH (09:16)
[2019-06-27] MEDS: Carvedilol 25 MG TAB PO SCH (09:16)
[2019-06-27] MEDS: Baclofen 10 MG TAB PO SCH (09:17)
[2019-06-27] MEDS: NIFEdipine XL 90 MG TAB PO SCH (09:17)
[2019-06-27] MEDS: Minoxidil 2.5 MG TAB PO SCH (09:17)
[2019-06-27] MEDS: Insulin Glargine 10 UNITS in Pre-Filled Syringe 1 EACH SC SCH (09:18)
--- NOTE | 2019-06-27 10:17 | OP ---
DATE OF PROCEDURE: 06/25/2019 PREOPERATIVE DIAGNOSIS: Idiopathic ischemic priapism. POSTOPERATIVE DIAGNOSIS: Idiopathic ischemic priapism. PROCEDURE PERFORMED: Aspiration, irrigation, and reduction of ischemic priapism with phenylephrine. ANESTHESIA: None. DESCRIPTION OF PROCEDURE: Indications for aspiration and irrigation of priapism reviewed and desired to proceed. His genital area was formally prepped and draped with Hibiclens. Using an 18-gauge needle, we aspirated venous priapism. Approximately 60 mL was aspirated with manual decompression as well. This was sent for ABG. We irrigated his corpora with 500 mcg of phenylephrine. A total of approximately 3 mL was injected intermittently. His blood pressure was monitored. Hospitalist at bedside aiding. He was provided hydralazine p.r.n. for hypertension. He tolerated the procedure well. Complete tumescence was noted with minimal ecchymosis and hematoma. Coban dressing applied. He tolerated the procedure. We will have to be monitored for recurrence of priapism. Job ID: [id number]
[2019-06-27 12:18] VITALS: TEMP 98.1
[2019-06-27] MEDS: HumaLOG 300 UNITS/3 ML VIAL SC PRN (12:38)
[2019-06-27 12:44] VITALS: BP 120/64
--- NOTE | 2019-06-27 17:23 | DIS ---
DATE OF ADMISSION: 06/24/2019 DATE OF DISCHARGE: 06/27/2019 PRIMARY CARE PROVIDER: Unknown. DISCHARGE DIAGNOSES: 1. Priapism. 2. Labile blood sugars. 3. Chronic stage 5 renal failure. CONDITION OF PATIENT ON THE DAY OF DISCHARGE: Stable. I assessed Mr. [place] on the day of discharge. He denies any chest pain or shortness of breath. Vital signs are stable. S1 and S2 are heard, regular. Lungs are clear to auscultation bilaterally. CONSULTATIONS DURING THIS HOSPITALIZATION: 1. Urology, Dr. Riley. 2. Hematology, Dr. Giancarlo Cuevas. DISCHARGE MEDICATIONS: 1. Aspirin 81 mg daily. 2. Fish oil 1000 mg daily. 3. Baclofen 10 mg 2 times a day. 4. Calcitriol 0.25 mcg daily. 5. Coreg 25 mg 2 times a day. 6. Clonidine 0.2 mg 4 times a day. 7. Glucagon p.r.n. 8. Lantus insulin 8 units at bedtime and 10 units in the morning. 9. Minoxidil 2.5 mg daily. 10. Procardia XL 90 mg daily. HOSPITAL COURSE: Mr. [place] is a pleasant 33-year-old gentleman, who was admitted to [facility] on June 24, 2019, for low blood sugars. His insulin dose was adjusted. Blood sugars were labile during this hospitalization and improved on the day of discharge. On June 25, he had an episode of priapism. He was seen by Urology Service. He underwent aspiration, irrigation, and reduction of ischemic priapism with phenylephrine. He improved clinically following that. He has been started on baclofen for spinal inhibition of nocturnal tumescence. He was seen by Hematology Service. Hematology Service did not recommend Hydrea at this time because it was unclear if the patient had true stuttering priapism. They recommended him establishing care with [facility]. The patient has been advised to stay in close followup with Urology Service. His sickle cell screen was positive for hemoglobin S. It appears that he may have been told in the past that he had sickle cell trait. Many thanks for allowing me to participate in Mr. [place]'s care. Please feel free to contact me with any questions or concerns. On June 27, he has white count of 6000, hemoglobin 9.7, and platelet count of 295,000. On October 19, he had sodium 137, potassium 3.8, blood urea nitrogen 56, and creatinine 6.48. He is advised to follow up with his prosthetic assistant. DISCHARGE DESTINATION: Home. TIME SPENT: Total amount of time spent coordinating this discharge: 32 minutes. Job ID: [id number]
--- NOTE | 2019-06-30 02:38 | PQF ---
CHIN DAI DAVID [id number] CLINICAL DOCUMENTATION CLARIFICATION FORM: POST DISCHARGE Addendum to original discharge summary date: ____ Late entry note date: __ DATE: 06/30/19 ATTN: Seng Boswell Please exercise your independent, professional judgment in responding to the clarification form. Clinical indicators are provided on the bottom of this form for your review Can you please further specify the acuity of sickle cell disease based on the clinical indicators below? Please check appropriate box(s): Sickle Cell Disease: Acuity: [ ] With Crisis: [ ] Acute Chest Syndrome [ ] Splenic Sequestration [ X ] Without Crisis [ ] Other diagnosis please specify [ ] Unable to determine In addition, please specify: Present on Admission (POA): [ ] Yes [ X ] No [ ] Unable to determine For continuity of documentation, please document condition throughout progress notes and discharge summary. Thank You. CLINICAL INDICATORS - SIGNS / SYMPTOMS / LABS Consult 06/27 Dr. Riley pg.2- The patient need s full work up, hematologic, including hemoglobin S Hospitalist PN 06/25- Sickle cell anemia with crisis Consult 06/26 Dr. Cuevas pg.1- The patient states many years ago he had sickle cell trait, but has never had any problems fprm it Consult 06/26 Dr. Cuevas pg.2- Patient Priapism is likely secondary to sickle cell trait DS pg.2- His sickle cell screen was positive for hemoglobin S RISK FACTORS Hypoglycemia- H and P pg.2 Acute Kidney Injury- H and P pg.3 Hypertensive Urgency- Hospitalist PN 06/25 pg.4 Priapism- DS pg.1 TREATMENT: Heme Consult 06/26- Dr. Cuevas Blood Chemistry monitoring- Laboratory 06/24 IV Fluids- NOV 14 Morphine 2gm IV- NOV 14 (This form is maintained as a part of the permanent medical record) 2014 [employer]. All Rights Reserved [email or web address] [not provided] MTDD
== END 2019-06-27 15:27 | disposition home or self-care (01) | DRG 638 ==
LOC: ERS 17:06 → OBSVTOIN 21:22 → T4-B 21:22
PROVIDERS: ADMIT Internal Medicine; ATTEND Internal Medicine
PROC: 0V9S3ZZ Drainage of Penis, Percutaneous Approach (ICD-10-PCS; principal; 2019-06-25)
PROC: 3E043GC Introduction of Other Therapeutic Substance into Central Vein, Percutaneous Approach (ICD-10-PCS; 2019-06-25)
PROC: 3E02340 Introduction of Influenza Vaccine into Muscle, Percutaneous Approach (ICD-10-PCS; 2019-06-25)
DX: E10.649 Type 1 diabetes mellitus with hypoglycemia without coma (principal); I12.0 Hypertensive chronic kidney disease with stage 5 chronic kidney disease or end stage renal disease; N48.39 Other priapism; D57.1 Sickle-cell disease without crisis; Z23 Encounter for immunization; N17.9 Acute kidney failure, unspecified; E10.22 Type 1 diabetes mellitus with diabetic chronic kidney disease; N18.5 Chronic kidney disease, stage 5; I16.0 Hypertensive urgency; E78.5 Hyperlipidemia, unspecified; E10.65 Type 1 diabetes mellitus with hyperglycemia; Z79.4 Long term (current) use of insulin; Z79.899 Other long term (current) drug therapy; Z79.82 Long term (current) use of aspirin
CPT/HCPCS: 36415; 36416; 71045; 80053; 80306; 82550; 82805; 83021; 83735; 85025; 85660; 93005; 96374; J0360; J0690; J1644; J1815; J2270; J2370; J3490

== ENCOUNTER 2019-08-26 10:07 | Emergency (ER) | payer OTHER, SELFPAY ==
[2019-08-26 11:10] LABS: #Eosinphils 0.3 thou/uL (0.0-0.7); #Lymphocytes 1.2 thou/uL (1.20-3.40); #Monocytes 0.3 thou/uL (0.11-0.59); #Neutrophils 7.1 thou/uL (1.40-6.50); %Basophils 0.4 % (0.0-1.0); %Eosinophils 3.3 % (0.0-10.0); %Monocytes 3.6 % (0.0-10.0); %Neutrophils 79.7 % (42.0-75.0); Hemoglobin 11.4 g/dL (14.0-18.0); Mean Corpuscular HGB CONC 34.4 g/dL (32.0-36.0); Mean Corpuscular Hemoglobin 31.4 pg (27.0-31.0); Mean Corpuscular Volume 91.2 fL (78.0-98.0); Mean Platelet Volume 6.8 fL (7.4-10.4); Platelet Count 386 thou/uL (130-400); Red Blood Cell (RBC) Count 3.63 mill/uL (4.70-6.10); White Blood Cell (WBC) Count 8.9 thou/uL (4.8-10.8)
[2019-08-26 11:20] LABS: ALT (SGPT) 26 U/L (8-55); AST (SGOT) 21 U/L (5-34); Albumin 3.7 g/dL (3.5-5.0); Alkaline Phosphatase 101 U/L (40-110); Anion Gap 17 mmol/L (10-20); BUN (Urea Nitrogen) 75 mg/dL (8.9-20.6); Bilirubin, Total 0.6 mg/dL (0.2-1.2); Calc. Creatinine Clearance 0 mL/min (70-130); Calcium 8.4 mg/dL (7.8-10.44); Carbon Dioxide 22 mmol/L (22-29); Chloride 101 mmol/L (98-107); Estimated GFR-MDRD 9; Globulin 3.8 g/dL (2.4-3.5); Glucose 111 mg/dL (70-105); Potassium 3.9 mmol/L (3.5-5.1); Protein, Total 7.5 g/dL (6.0-8.3); Sodium 136 mmol/L (136-145)
--- NOTE | 2019-08-26 11:21 | RAD ---
PORTABLE CHEST: Date: 08/26/19 HISTORY: Mental status change. FINDINGS: Lungs appear clear. Heart and mediastinum unremarkable. IMPRESSION: No acute findings. POS: [facility]
[2019-08-26 12:02] LABS: Bacteria/HPF None Seen HPF (None Seen); Bilirubin Negative (Negative); Blood, Urine 1+ (Negative); Clarity Clear (Clear); Glucose, Urine (Dipstick) 200 mg/dL (Negative); Leukocyte Negative Leu/uL (Negative); Nitrite Negative (Negative); Protein, Urine (Dipstick) 300 mg/dL (Neg-Trace); Squamous Epithelial None Seen HPF (0-3); Urobilinogen Normal mg/dL (Less than 2); WBC/HPF 0-3 HPF (0-3)
--- NOTE | 2019-08-30 14:29 | EKG ---
Test Reason : Blood Pressure : / mmHG Vent. Rate : 099 BPM Atrial Rate : 099 BPM P-R Int : 142 ms QRS Dur : 082 ms QT Int : 356 ms P-R-T Axes : 072 071 061 degrees QTc Int : 456 ms Normal sinus rhythm Normal ECG Peaked T waves Confirmed by BAKARI DUNLAP, RAFAELA ([id number]), tape editor KATIE KOLB ([id number]) on 08/30/2019 2:28:56 PM Referred By: Confirmed By:RAFAELA VILLEGAS MD
== END 2019-08-26 13:51 | disposition home or self-care (01) ==
LOC: ERS 10:07
DX: I10 Essential (primary) hypertension (principal); E10.9 Type 1 diabetes mellitus without complications; Z79.82 Long term (current) use of aspirin; Z79.899 Other long term (current) drug therapy; Z79.891 Long term (current) use of opiate analgesic
CPT/HCPCS: 36415; 36416; 71045; 80053; 81003; 81015; 83605; 84484; 85025; 93005; 96360; 96361

== ENCOUNTER 2019-09-20 15:42 | Inpatient (IN) | payer OTHER, SELFPAY ==
[2019-09-20] MEDS ORDERED: Dextrose 50% Abboject 50 ML SYRINGE ONE (16:27)
[2019-09-20 17:23] LABS: #Eosinphils 0.1 thou/uL (0.0-0.7); #Lymphocytes 0.8 thou/uL (1.20-3.40); #Monocytes 0.3 thou/uL (0.11-0.59); #Neutrophils 4.8 thou/uL (1.40-6.50); %Basophils 0.4 % (0.0-1.0); %Eosinophils 2.1 % (0.0-10.0); %Lymphocytes 13.9 % (21.0-51.0); %Monocytes 5.1 % (0.0-10.0); %Neutrophils 78.5 % (42.0-75.0); Hemoglobin 10.9 g/dL (14.0-18.0); Mean Corpuscular HGB CONC 35.1 g/dL (32.0-36.0); Mean Corpuscular Hemoglobin 31.9 pg (27.0-31.0); Mean Corpuscular Volume 90.9 fL (78.0-98.0); Mean Platelet Volume 8.8 fL (7.4-10.4); Platelet Count 227 thou/uL (130-400); RBC Distribution Width 12.4 % (11.5-14.5); Red Blood Cell (RBC) Count 3.43 mill/uL (4.70-6.10); White Blood Cell (WBC) Count 6.1 thou/uL (4.8-10.8)
[2019-09-20 17:54] LABS: ALT (SGPT) 49 U/L (8-55); AST (SGOT) 44 U/L (5-34); Albumin 3.6 g/dL (3.5-5.0); Alkaline Phosphatase 100 U/L (40-110); Anion Gap 18 mmol/L (10-20); BUN (Urea Nitrogen) 58 mg/dL (8.9-20.6); Bilirubin, Total 0.4 mg/dL (0.2-1.2); Calc. Creatinine Clearance 0 mL/min (70-130); Calcium 8.2 mg/dL (7.8-10.44); Carbon Dioxide 22 mmol/L (22-29); Chloride 102 mmol/L (98-107); Estimated GFR-MDRD 8; Globulin 3.8 g/dL (2.4-3.5); Glucose 116 mg/dL (70-105); Potassium 4.2 mmol/L (3.5-5.1); Protein, Total 7.4 g/dL (6.0-8.3); Sodium 138 mmol/L (136-145)
[2019-09-20 19:49] LABS: Bacteria/HPF None Seen HPF (None Seen); Bilirubin Negative (Negative); Blood, Urine 1+ (Negative); Clarity Clear (Clear); Glucose, Urine (Dipstick) 200 mg/dL (Negative); Leukocyte Negative Leu/uL (Negative); Nitrite Negative (Negative); Protein, Urine (Dipstick) 300 mg/dL (Neg-Trace); RBC/HPF 0-3 HPF (0-3); Squamous Epithelial 0-3 HPF (0-3); Urobilinogen Normal mg/dL (Less than 2); WBC/HPF 0-3 HPF (0-3)
[2019-09-20] MEDS ORDERED: hydrALAZINE 20 MG/ML VIAL SLOW IVP PRN (20:15)
[2019-09-20] MEDS ORDERED: Ondansetron PF 4 MG/2 ML Vial IVP PRN (20:15)
[2019-09-20] MEDS ORDERED: Ondansetron ODT 4 MG TAB PO PRN (20:15)
[2019-09-20] MEDS ORDERED: Dextrose 50% Abboject 50 ML SYRINGE SLOW IVP PRN (20:15)
[2019-09-20] MEDS ORDERED: Dextrose 5% in Water 1,000 ML IV PRN (20:15)
[2019-09-20] MEDS ORDERED: cloNIDine 0.1 MG TAB ONE ×2 (20:54→20:56)
--- NOTE | 2019-09-20 21:14 | HP ---
PRIMARY CARE PROVIDER: [place], [place]. PRIMARY MOBILE TESTER: Dr. Juancarlos Ramirez. CHIEF COMPLAINT: Passing out. HISTORY OF PRESENT ILLNESS: This is a 33-year-old male, who presents to [facility] Emergency Department after apparently experiencing hypoglycemic episode while working. The patient states that he took his regular morning dose of Lantus after eating breakfast and then checked his glucose again approximately 10 a.m. this morning and took an additional 7 units of short-acting insulin and ate a meal from [employer]. The patient states that he got into his work truck approximately 1300 pm and after this, does not remember many details. The patient was apparently discovered by coworkers somnolent and difficult to arouse. EMS personnel were called, at which point the patient was evaluated with initial blood glucose in the 40s. The patient received D10 infusion as well as D50 after placement of a left humeral IO IV line. The patient improved in regard to mentation after glucose increased to the low 100s. The patient was notably admitted in June 2019 for similar hypoglycemic episode. The patient states he is followed on a regular basis by an circular ripsaw operator with adjustment to his insulin regimen. The patient states he has been compliant and does frequent glucose checks at home. The patient denied any recent fever, chills, trauma, or change to his chronic medication regimen. In the emergency room, the patient was evaluated with initial glucose stated in the field in the mid 40s increasing to the low 100s after D10 and D50 infusion. The patient overall feels near baseline except for left shoulder pain, where the intraosseous IV line was placed. PAST MEDICAL HISTORY: 1. Diabetes mellitus type 1. 2. Chronic kidney disease stage 5. 3. Hypertension. 4. Recurrent hypoglycemia. 5. Hyperlipidemia. PAST SURGICAL HISTORY: Status post right knee repair. CURRENT MEDICATIONS: 1. Lantus U-100 of 14 units subcutaneously b.i.d. 2. Carvedilol 12.5 mg p.o. b.i.d. 3. Aspirin 81 mg p.o. daily. 4. [place]-3 fatty acids 1000 mg p.o. daily. 5. Vitamin D3 of 1000 units p.o. daily. ALLERGIES: NO KNOWN DRUG ALLERGIES. FAMILY HISTORY: Positive for diabetes mellitus and hypertension. SOCIAL HISTORY: , accompanied by his in the emergency room. Occasional alcohol use. No tobacco or illicit drug use. 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 REVIEW OF SYSTEMS: CONSTITUTIONAL: Negative for weight loss or gain, ability to conduct usual activities. SKIN: Negative for rash, itching. EYES: Negative for double vision, pain. ENT/MOUTH: Negative for nose bleeding, neck stiffness, pain, tenderness. CARDIOVASCULAR: Negative for palpitations, dyspnea on exertion, orthopnea. RESPIRATORY: Negative for shortness of breath, wheezing, cough, hemoptysis, fever or night sweats. GASTROINTESTINAL: Negative for poor appetite, abdominal pain, heartburn, nausea, vomiting, constipation, or diarrhea. GENITOURINARY: Negative for urgency, frequency, dysuria, nocturia. MUSCULOSKELETAL: Negative for pain, swelling. NEUROLOGIC/PSYCHIATRIC: Negative for anxiety, depression. ALLERGY/IMMUNOLOGIC: Negative for skin rash, bleeding tendency. Otherwise, negative except as stated per HPI. PHYSICAL EXAMINATION: VITAL SIGNS: On admission, blood pressure 179/109, pulse 95, respiratory rate 20, temperature 94.3 degrees Fahrenheit, O2 saturation 95% on room air. GENERAL APPEARANCE: This is a 33-year-old male, alert and oriented x3, pleasant, responsive, in no acute distress. HEENT: Pupils are equal, round, reactive to light and accommodation. Extraocular muscles are intact. No scleral icterus. No conjunctival injection. Nares patent. OP is clear. Oral mucosa dry. NECK: Supple. No cervical adenopathy. No thyromegaly. No carotid bruits. No JVD appreciated. Cervical spine with full active and passive range of motion. No meningeal signs noted. CHEST: Lungs are clear to auscultation bilaterally. CARDIOVASCULAR: S1 and S2 without noted murmur, rub, or gallop. ABDOMEN: Rounded, soft, nontender, and nondistended. Bowel sounds are positive in all 4 quadrants. There is no hepatosplenomegaly. No abdominal bruits. No rebound or guarding appreciated. EXTREMITIES: Warm and dry with fair turgor. Left upper extremity with IO catheter in place. No asymmetric edema appreciated. Pulses palpable distally at the dorsalis pedis, posterior tibial, and popliteal arteries bilaterally. Capillary refill less than 2 seconds. NEUROLOGIC: Cranial nerves 2 through 12 are grossly intact. No focal or lateralizing signs appreciated. PERTINENT LABORATORY AND X-RAY FINDINGS: Sodium 138, potassium 4.2, chloride 102, CO2 of 22, BUN 58, creatinine 9.77, estimated GFR of 8, glucose 116, calcium 8.2, AST 44, ALT of 49, alkaline phosphatase 100, albumin 3.6. CBC showed a white blood cell count of 6.1, hemoglobin 11, hematocrit 31, platelet count 227 with 79% neutrophils. ASSESSMENT AND PLAN: 1. Acute hypoglycemic episode. The patient will be admitted to the medical floor. We will continue serial Accu-Cheks q.4 hours. Hold p.m. dose of Lantus. Insulin sliding scale for reflexive coverage. No current evidence to suggest focal infectious process. 2. Acute metabolic encephalopathy secondary to hypoglycemia. Improved after administration of glucose. We will continue to encourage increased p.o. intake. See #1 above. 3. Diabetes mellitus type 1. Confirm home insulin regimen. Serial Accu-Cheks q.4 hours. ADA diet. 4. Chronic kidney disease stage 5. The patient currently not on hemodialysis per report. Followed as an outpatient with Nephrology Service. No current evidence of acute volume overload. 5. Hypertension. Labile. Resume home blood pressure regimen. IV hydralazine and labetalol for systolic greater than or equal to 170. 6. Prophylaxis. SCDs while in bed. Pepcid 20 mg p.o. b.i.d.. 7. Code status is full. Surrogate medical decision maker is the patient's spouse. Job ID: [id number]
[2019-09-20 22:33] VITALS: BMI 31.0
[2019-09-20] MEDS: cloNIDine 0.2 MG TAB PO SCH (22:52)
[2019-09-20] MEDS: Carvedilol 25 MG TAB PO SCH (22:56)
[2019-09-20] MEDS: Acetaminophen 500 MG TAB PO PRN (22:56)
[2019-09-21] MEDS: HumaLOG 300 UNITS/3 ML VIAL SC PRN ×3 (04:24→20:57)
[2019-09-21] MEDS: Acetaminophen 500 MG TAB PO PRN (05:32)
[2019-09-21 07:27] LABS: Hemoglobin 8.5 g/dL (14.0-18.0); Mean Corpuscular HGB CONC 34.6 g/dL (32.0-36.0); Mean Corpuscular Hemoglobin 32.1 pg (27.0-31.0); Mean Corpuscular Volume 92.6 fL (78.0-98.0); Mean Platelet Volume 7.6 fL (7.4-10.4); Platelet Count 263 thou/uL (130-400); RBC Distribution Width 12.3 % (11.5-14.5); Red Blood Cell (RBC) Count 2.64 mill/uL (4.70-6.10); White Blood Cell (WBC) Count 5.7 thou/uL (4.8-10.8)
[2019-09-21 07:46] LABS: Anion Gap 14 mmol/L (10-20); BUN (Urea Nitrogen) 59 mg/dL (8.9-20.6); Calc. Creatinine Clearance 15 mL/min (70-130); Calcium 7.6 mg/dL (7.8-10.44); Carbon Dioxide 23 mmol/L (22-29); Chloride 101 mmol/L (98-107); Estimated GFR-MDRD 7; Glucose 289 mg/dL (70-105); Potassium 3.8 mmol/L (3.5-5.1); Sodium 134 mmol/L (136-145)
[2019-09-21 08:20] LABS: Band 1 % (5-11); Eosinophils 3 % (0-10); Lymphocytes 18 % (21-51); MDiff Complete? YES; Monocytes 6 % (0-10); Neutrophil 71 % (42-75); Platelet Morphology Comment Appears Adequate; RBC Morphology Normal
[2019-09-21] MEDS: Fish Oil 1,000 MG CAP PO SCH (09:09)
[2019-09-21] MEDS: cloNIDine 0.2 MG TAB PO SCH ×4 (09:09→20:56)
[2019-09-21] MEDS: Calcitriol 0.25 MCG CAP PO SCH (09:09)
[2019-09-21] MEDS: Famotidine 20 MG TAB PO SCH (09:09)
[2019-09-21] MEDS: Aspirin 81 mg Enteric Coated Tablet PO SCH (09:09)
[2019-09-21] MEDS: Carvedilol 25 MG TAB PO SCH ×2 (09:09→20:56)
[2019-09-21] MEDS: Minoxidil 2.5 MG TAB PO SCH (09:09)
[2019-09-21] MEDS: NIFEdipine XL 90 MG TAB PO SCH (09:10)
--- NOTE | 2019-09-21 10:32 | PDOC.HOSPP ---
- Subjective Encounter Date: 09/21/19 Encounter Time: 09:25 Subjective: f/u for hypoglycemic episode. No recurrence reported and glucose trend showing ranges in the 200's. No new complaints currently other than L shoulder pain from IO IV placement. - Objective Vital Signs & Weight: Vital Signs (12 hours) Temp Pulse Resp BP BP Pulse Ox 09/21/19 09:10 95 134/77 09/21/19 09:09 134/77 09/21/19 07:20 98.8 F 95 18 134/77 95 09/21/19 04:09 99.2 F 98 18 139/76 95 09/21/19 04:00 99.2 F 98 18 139/76 95 09/21/19 00:15 98.7 F 104 H 18 98 09/20/19 22:52 169/92 H 09/20/19 22:33 98.7 F 104 H 18 169/92 H 98 Weight Weight 216 lb 6.4 oz Result Diagrams: 09/21/19 05:08 09/21/19 05:08 Additional Labs: Accuchecks 09/21/19 09/21/19 09/20/19 04:10 00:53 20:34 POC Glucose 297 H 233 H 217 H 09/20/19 09/20/19 09/20/19 18:13 17:14 16:29 POC Glucose 110 127 H 51 L* 09/20/19 15:58 POC Glucose 69 L Laboratory Tests 06/14/19 06/14/19 06/14/19 12:28 12:28 12:29 Hgb 12.2 L Hct Neutrophils % Neutrophils % (Manual) BUN Creatinine 6.25 H Hemoglobin A1c Troponin I 0.027 06/14/19 06/14/19 06/15/19 15:58 19:57 04:55 Hgb Hct Neutrophils % Neutrophils % (Manual) BUN Creatinine Hemoglobin A1c 8.0 H Troponin I 0.029 H 0.052 H 09/20/19 09/20/19 09/21/19 17:16 17:16 05:08 Hgb 10.9 L Hct 31.2 L Neutrophils % 78.5 H Neutrophils % (Manual) 71 BUN 58 H Creatinine 9.77 H Hemoglobin A1c Troponin I Hospitalist ROS - Medication Medications: Active Medications Generic Name Dose Route Start Last Admin Trade Name Freq PRN Reason Stop Dose Admin Acetaminophen 1,000 mg 09/20/19 20:15 09/21/19 05:32 Tylenol PO 1,000 mg Q6H PRN Administration Mild Pain (1-3) Aspirin 81 mg 09/21/19 09:00 09/21/19 09:09 Ecotrin PO 81 mg DAILY FLORENTINO Administration Calcitriol 0.25 mcg 09/21/19 09:00 09/21/19 09:09 Rocaltrol PO 0.25 mcg DAILY FLORENTINO Administration Carvedilol 25 mg 09/20/19 21:00 09/21/19 09:09 Coreg PO 25 mg BID FLORENTINO Administration Clonidine 0.2 mg 09/20/19 21:00 09/21/19 09:09 Catapres PO 0.2 mg QID FLORENTINO Administration Famotidine 20 mg 09/21/19 09:00 09/21/19 09:09 Pepcid PO 20 mg QAM FLORENTINO Administration Fish Oil 1,000 mg 09/21/19 09:00 09/21/19 09:09 Fish Oil PO 1,000 mg DAILY FLORENTINO Administration Insulin Human Lispro 0 units 09/20/19 20:15 09/21/19 04:24 Humalog SC 4 unit .MILD SLIDING SCALE PRN Administration Mild Correctional Scale Minoxidil 2.5 mg 09/21/19 09:00 09/21/19 09:09 Minoxidil PO 2.5 mg DAILY FLORENTINO Administration Nifedipine 90 mg 09/21/19 09:00 09/21/19 09:10 Procardia Xl PO 90 mg DAILY FLORENTINO Administration - Exam General Appearance: NAD, awake alert Eye: PERRL, anicteric sclera ENT: normocephalic atraumatic, no oropharyngeal lesions Neck: supple, symmetric, no JVD, no thyromegaly, no lymphadenopathy Heart: RRR, no murmur, no gallops, no rubs, normal peripheral pulses Respiratory: CTAB, no wheezes, no rales, no ronchi, normal chest expansion Gastrointestinal: soft, non-tender, non-distended, normal bowel sounds Extremities: no cyanosis, no clubbing, no edema Neurological: cranial nerve grossly intact, no new deficit Musculoskeletal: normal tone, normal strength, no muscle wasting Psychiatric: normal affect, A&O x 3 Hosp A/P (1) Hypoglycemia Code(s): E16.2 - HYPOGLYCEMIA, UNSPECIFIED Status: Acute Plan: Resolved, likely due to CKD, decrease Lantus 12u sc daily, serial accuchecks (2) Acute metabolic encephalopathy due to hypoglycemia Code(s): G93.41 - METABOLIC ENCEPHALOPATHY; E16.2 - HYPOGLYCEMIA, UNSPECIFIED Status: Acute Plan: Resolved, supportive mgmt (3) CKD (chronic kidney disease), stage V Code(s): N18.5 - CHRONIC KIDNEY DISEASE, STAGE 5 Status: Chronic Plan: Nephrology recommending initiating HD/PD this hospital stay due to financial constraints for outpt coordination, pt considering this option (4) DM I (diabetes mellitus, type I) Status: Chronic Plan: Decrease Lantus 12u sc qam, serial accuchecks (5) HTN (hypertension) Code(s): I10 - ESSENTIAL (PRIMARY) HYPERTENSION Status: Chronic Qualifiers: Hypertension type: essential hypertension Qualified Code(s): I10 - Essential (primary) hypertension Plan: Resume home BP regimen, titrate to clinical response - Plan 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
--- NOTE | 2019-09-21 11:34 | CON ---
DATE OF CONSULTATION: HISTORY OF PRESENT ILLNESS: Mr. Jones is a 33-year-old black male with chronic renal failure from diabetic nephropathy and was admitted for syncopal episode secondary to hypoglycemia. Please note, the patient has history of type 1 diabetes mellitus. We are being consulted for management of his chronic renal failure. I saw him in the clinic back on August and at that time, I did recommend initiating dialysis, but he declined. His GFR at that time was 9 mL/minute, currently is now 7 mL/minute. REVIEW OF SYSTEMS: Positive for generalized edema, decreased appetite, and decreased energy level. No nausea. No vomiting. No tremors. No asterixis. No chest pain. No shortness of breath. Positive for syncopal episode from hypoglycemia. Occasional joint pains. HOME MEDICATIONS: Include: 1. Lantus 16 units subcu daily. 2. Carvedilol 12.5 mg p.o. b.i.d. 3. Aspirin 81 mg daily. 4. Calcitriol 0.25 mcg tablet daily. 5. Minoxidil 2.5 mg once a day. 6. Procardia XL 90 mg once a day. 7. Baclofen p.r.n. PAST MEDICAL HISTORY: 1. Chronic renal failure from diabetic nephropathy. 2. Type 1 diabetes mellitus. 3. Hypertension. 4. Secondary hyperparathyroidism. PAST SURGICAL HISTORY: Status post right arthroscopic surgery. SOCIAL HISTORY: The patient lives in [place]. 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 He is single. No children. No blood transfusion. Education, high school. No IV drugs. FAMILY HISTORY: Positive family history of ESRD, one aunt was on dialysis. ALLERGIES: NONE. TRAUMA: None. IMMUNIZATIONS: Up-to-date. HOSPITALIZATIONS: Please see past medical history. PHYSICAL EXAMINATION: VITAL SIGNS: Blood pressure is 134/77, heart rate 95, respiratory rate 18, temperature 98.8, and pulse ox 95%. GENERAL: The patient is awake, alert, and comfortable, not in overt distress. SKIN: Adequate turgor. HEENT: He has pale conjunctivae. Anicteric sclerae. NECK: No neck mass. No carotid bruits. No JVD. CHEST: No deformities. LUNGS: Clear breath sounds. No wheezing. No crackles. HEART: Normal sinus rhythm. No murmur. No gallops. No rubs. ABDOMEN: Globular, soft, and nontender. No masses. EXTREMITIES: Positive for edema. No deformities. LABORATORY DATA: Laboratories of September 21, 2019; white count 5.7, hemoglobin 8.5. Sodium 134, potassium 3.8, chloride 101, carbon dioxide 23, BUN 59, creatinine 9.9, GFR 7 mL/minute, glucose 289, and calcium 7.6. ASSESSMENT AND PLAN: 1. Anemia. Start iron supplementation and Epogen. 2. Chronic renal failure from diabetic nephropathy-worsening renal dysfunction. I offered the patient the initiation dialysis. He would like to think about it. His choice is peritoneal dialysis. I will await for his call, so we can consult Surgery for placement of PD catheter. 3. Hypertension. Continue current BP medications. 4. Hypoglycemia, much improved. Adjust insulin regimen. Job ID: [id number]
--- NOTE | 2019-09-21 11:36 | PDOC.BPN ---
- Brief Progress Note Home Visit Provider Report: Requested per [facility] team to consult with patient in regards to frequent and recent hospitalizations for hypoglycemia. Hypoglycemia: Has been provided [facility] RN navigation for 90 days. Diet, medication and compliance stressed. Patient reports frustrations with taking meds, eating daily and continuing to have blood glucose readings of low. States taking his blood glucose multiple times per day and reporting via text to boss. Renal disease: Patient reports he visited with Dr. Ramirez this AM and peritoneal dialysis has been recommended. Patient reports fearful of starting dialysis due to lack of understanding, past experiences with family members and his desire to continue to work. Provided education on PD including YouTube videos. States he has known he will need this for years. Dialysis nurse from [facility] to bedside to discuss plan of care. Financial Concerns: Reports supportive family, but does have financial concerns. Informed patient that he will need to apply for Medicare benefits due to his renal failure and should qualify for services. Case Management to bedside to discuss enrollment for services. Follow-up: Due to the patient accepting Dialysis services Home Visits will not be offered to the client. The client needs to establish provider relationship. I will offer a 1 time follow-up phone call to check in next week. If you have any further needs for this client please call: [phone]
[2019-09-21] MEDS: Insulin Glargine 10 UNITS in Pre-Filled Syringe 1 EACH SC SCH (12:45)
[2019-09-21] MEDS ORDERED: CEFAZOLIN 2 GM in Premix Bag 1 BAG IVPB SCH (15:30)
--- NOTE | 2019-09-21 15:44 | DIS ---
DATE OF ADMISSION: 09/20/2019 DATE OF DISCHARGE: 09/21/2019 DISCHARGE DIAGNOSES: 1. Acute hypoglycemia, resolved. 2. Acute metabolic encephalopathy secondary to hypoglycemia, resolved. 3. Diabetes mellitus, type 1. 4. Chronic kidney disease, stage 5. 5. Hypertension, improved. CONSULTATIONS: None. PERTINENT LABORATORY AND X-RAY FINDINGS: Creatinine ranged between 9.77 to 9.90. Potassium ranged between 3.8 to 4.2. Glucose ranged between 110 to 297. Calcium ranged between 7.6 to 8.2. CBC showed a white blood cell count ranging between 5.7 to 6.1, hemoglobin ranged between 8.5 to 10.9. HOSPITAL COURSE: The patient was initially admitted after presenting with acute metabolic encephalopathy secondary to hypoglycemic episode in the context of diabetes mellitus, type 1. The patient was held on all insulin therapy and monitored with serial glucose evaluation. The patient initially had received D50 in addition to D10 prior to admission with overall improvement in glucose trend. The patient received initial IV fluids and stabilized after glucose administration. The patient remained clinically stable during his hospital stay with overall glucose trend showing values in the 200 range. Current recommendations are to decrease Lantus dosing to 12 units subcutaneously q.a.m. The patient encouraged to monitor his glucose frequently, especially in the morning hours up until noon time. I have examined the patient at the time of discharge and discussed followup instructions. The patient verbalizes understanding and in agreement and ready for discharge on 09/21/2019. DISCHARGE MEDICATIONS: 1. Lantus 12 units subcutaneously q.a.m. 2. Enteric-coated aspirin 81 mg p.o. daily. 3. [place]-3 fatty acids 1000 mg p.o. daily. 4. Baclofen 10 mg p.o. b.i.d. p.r.n. 5. Calcitriol 0.25 mcg p.o. daily. 6. Coreg 25 mg p.o. b.i.d. 7. Clonidine 0.2 mg p.o. q.i.d. 8. Minoxidil 2.5 mg p.o. daily. 9. Procardia XL 90 mg p.o. daily. FOLLOWUP: The patient may follow up with [facility] in [place], [place] within 7 days of discharge. The patient may also follow up with Dr. Juancarlos Ramirez with Nephrology Service and to call his office for appointment, time, and date. CONDITION ON DISCHARGE: Stable. ACTIVITY: Ad-mirna. DIET: ADA. CODE STATUS: Full. DISPOSITION: To home on 09/21/2019. Job ID: [id number]
--- NOTE | 2019-09-21 18:05 | CON ---
DATE OF CONSULTATION: REASON FOR CONSULTATION: Need for dialysis access. HISTORY OF PRESENT ILLNESS: Mr. Jones is a 33-year-old man, who was recently admitted to the hospital for hypoglycemia. He is a type 1 diabetic. He was noted to have further decline in his renal function, and his bilingual teacher has again recommended dialysis initiation. At this point, the patient is ready to proceed. He has refused this in the past. 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 He has not had any previous abdominal surgery. PAST MEDICAL HISTORY: 1. Type 1 diabetes, diagnosed at 8 years of age. 2. Chronic renal failure with most recent GFR 7. 3. Hypertension. 4. Secondary hyperparathyroidism. PAST SURGICAL HISTORY: Right knee arthroscopy, but no abdominal surgeries. OUTPATIENT MEDICATIONS: Include: 1. Lantus. 2. Carvedilol. 3. Aspirin. 4. [place]-3 fatty acids. 5. Vitamin D3. ALLERGIES: HE HAS NO KNOWN DRUG ALLERGIES. FAMILY HISTORY: Diabetes and hypertension. SOCIAL HISTORY: He does not smoke or use illicit drugs. He drinks only occasionally and not to excess. 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 REVIEW OF SYSTEMS: Ten-system review of systems is negative except per HPI. The patient also has chronic swelling in his left greater than right lower extremity, and new onset of swelling in his left upper extremity since placement of an antecubital IV. PHYSICAL EXAMINATION: VITAL SIGNS: The patient is afebrile, blood pressure is 161/83, respirations 18, 96% saturated on room air, heart rate is 92. GENERAL: Reveals a healthy-appearing young man, in no acute distress. He is not flushed or toxic in appearance. He is not jaundiced or icteric. HEENT: Unremarkable. NECK: Supple without lymphadenopathy or thyroid nodules. HEART: Regular in its rate and rhythm without murmurs, rubs, or gallops. LUNGS: Clear to auscultation bilaterally. ABDOMEN: Soft, nontender, and nondistended. No palpable hernias or masses. EXTREMITIES: Warm and well perfused. He has moderate pitting edema on the left leg and slight edema on the right leg. He has moderate nonpitting edema of the left upper extremity and mild edema of the right. No palpable cephalic or forearm veins. NEUROLOGIC: No focal deficits. PSYCHIATRIC: Alert, oriented, and appropriate.4 LABORATORY DATA: White count is 5.7, hematocrit 24, and platelets 263. BUN and creatinine are 59 and 9.9 with an estimated GFR of 7. Potassium is normal at 3.8, and bicarb is normal at 23. Glucoses ranged from 110 to 297. ASSESSMENT: End-stage renal failure with need for dialysis in the near future. He has decided to proceed with peritoneal dialysis, and his bilingual teacher plans to start peritoneal dialysis without hemodialysis using low-flow technique. The process of peritoneal dialysis catheter placement was discussed with the patient. Inherent risks were also discussed. These include, but are not limited to, bleeding, infection, risks of anesthesia, damage to nearby structures including bowel, blood vessels, and bladder, failure of the catheter to function, need for other procedures, and peritonitis. The patient understands and accepts these risks and wishes to proceed. He understands that he will need to limit his lifting to 20 pounds or less for 2 weeks postoperatively. Given his significant left lower extremity edema, I am going to order a duplex ultrasound of his lower extremities. Job ID: [id number]
--- NOTE | 2019-09-21 22:19 | ULT ---
Venous duplex sonogram bilateral lower extremity HISTORY: Bilateral leg pain and edema. FINDINGS: Each common femoral vein and greater saphenous junction were evaluated along with each femo ral, deep femoral, popliteal, and posterior tibial vein. There is good color and spectral Doppler flow, compression, and augmentation. Reactive appearing lymph nodes at each groin. IMPRESSION: Normal exam.
[2019-09-22 05:39] LABS: Eosinophils 4 % (0-10); Hemoglobin 8.5 g/dL (14.0-18.0); Lymphocytes 26 % (21-51); MDiff Complete? YES; Mean Corpuscular HGB CONC 33.7 g/dL (32.0-36.0); Mean Corpuscular Hemoglobin 30.9 pg (27.0-31.0); Mean Corpuscular Volume 91.8 fL (78.0-98.0); Mean Platelet Volume 7.2 fL (7.4-10.4); Monocytes 9 % (0-10); Neutrophil 61 % (42-75); Platelet Count 244 thou/uL (130-400); Platelet Morphology Comment Appears Adequate; RBC Distribution Width 12.3 % (11.5-14.5); Red Blood Cell (RBC) Count 2.74 mill/uL (4.70-6.10); White Blood Cell (WBC) Count 4.2 thou/uL (4.8-10.8)
[2019-09-22 05:52] LABS: Anion Gap 12 mmol/L (10-20); BUN (Urea Nitrogen) 60 mg/dL (8.9-20.6); Calc. Creatinine Clearance 15 mL/min (70-130); Calcium 7.7 mg/dL (7.8-10.44); Carbon Dioxide 25 mmol/L (22-29); Chloride 105 mmol/L (98-107); Estimated GFR-MDRD 7; Glucose 189 mg/dL (70-105); Potassium 4.1 mmol/L (3.5-5.1); Sodium 138 mmol/L (136-145)
[2019-09-22] MEDS: Carvedilol 25 MG TAB PO SCH ×2 (06:38→20:08)
[2019-09-22] MEDS ORDERED: Fentanyl 100 MCG/2 ML VIAL ONE (06:52)
[2019-09-22] MEDS ORDERED: Bupivacaine PF 0.5% 30 ML VIAL ONE (06:57)
[2019-09-22] MEDS ORDERED: Heparin 10,000 UNITS/1 ML VIAL ONE (06:57)
[2019-09-22] MEDS ORDERED: Lidocaine 1% w/Epinephrine 1:100K 20 ML VIAL ONE (06:57)
[2019-09-22] MEDS ORDERED: Bupivacaine 0.25% HCL 30 ML VIAL ONE (06:58)
[2019-09-22] MEDS ORDERED: Promethazine HCl 25 MG/ML VIAL IM PRN (08:16)
[2019-09-22] MEDS ORDERED: Ondansetron HCl/PF 4 MG/2 ML Vial IVP PRN (08:16)
[2019-09-22] MEDS ORDERED: Promethazine HCl 25 MG/ML VIAL SLOW IVP PRN (08:16)
--- NOTE | 2019-09-22 08:52 | PDOC.OP ---
Operative Note - Operative Note Operative Note: PROCEDURE: Laparoscopic peritoneal dialysis catheter placement SURGEON: Jose Espinoza M.D. DATE OF PROCEDURE:09/22/2019 PREOPERATIVE DIAGNOSIS: Renal failure POSTOPERATIVE DIAGNOSIS: Renal failure HISTORY: Patient with renal failure and imminent need for dialysis. Peritoneal dialysis has been selected as the modality of choice and a laparoscopic peritoneal dialysis catheter placement has been requested. PROCEDURE IN DETAIL: After informed consent was obtained and appropriate preoperative antibiotic were administered the patient was taken to the operating room, placed in supine position and general endotracheal anesthesia was administered. The abdomen was sterilely prepped and draped and local anesthesia infused at the level of the umbilicus. A transverse skin incision was made and the fascia was elevated. A Veress needle was placed into the abdominal cavity without difficulty and carbon dioxide gas insufflated to an intra-abdominal pressure 15 which the patient tolerated well. There is needle was withdrawn and a [place] port advanced under direct laparoscopic vision into the abdominal cavity which was carefully examined. There was no evidence of Veress needle or trocar injury. There were no significant adhesions. A 5 mm trocar was placed in the lateral upper abdomen and the patient was placed in Trendelenburg. The small bowel was easily drawn up out of the pelvis and no adhesions seen in this area. The bottom of the posterior rectus sheath was identified. Local anesthesia was infused to the skin and subcutaneous tissues overlying and lateral to this area. A skin incision was made and an 8 mm trocar tunneled superiorly medially and then inferiorly through the rectus sheath entering the abdominal cavity just above the inferior edge of the rectus sheath. The peritoneal dialysis catheter was placed through the trocar and held in place positioning the inner cuff within the rectus muscle. The trocar was withdrawn and the end of the peritoneal dialysis catheter placed into the pelvis. Saline was infused and drained easily out of the peritoneal cavity through the cuffed tunneled dialysis catheter. The camera was moved to the upper abdominal trocar site and the umbilical trocar removed. The fascia was bridged with a 0 Vicryl suture on a GraNee needle and the sutures secured not tied down. The trocar was replaced through the same defect and the camera moved back to the umbilical location. The upper abdominal trocar was removed and a 0 Vicryl suture on a GraNee needle used to close the fascial defect. Carbon dioxide gas was allowed to desufflate through the umbilical trocar which was then removed and the fascia closed with the pre-existing suture. The second cuff of the peritoneal dialysis catheter was positioned within the subcutaneous tissues and the skin incision at the exit site closed in 2 layers with 4-0 Monocryl suture. The other skin incisions were closed with subcuticular 4-0 Monocryl suture as well. Dermabond dressings were placed and allowed to dry. Heparin flush was infused through the peritoneal dialysis catheter which was then capped and clamped. Once the Dermabond was dry the PD exit site was dressed with gauze and Tegaderm. The patient was extubated and taken to the recovery room in good condition. Estimated blood loss was minimal. There were no complications. There were no specimens.
[2019-09-22] MEDS ORDERED: Tuberculin PPD 0.1 ML VIAL I-DERMAL SCH ×2 (09:00→10:00)
[2019-09-22] MEDS ORDERED: EPOETIN ALFA-EPBX (ESRD) 4,000 UNIT/ML VIAL SC SCH (09:30)
--- NOTE | 2019-09-22 09:47 | PRG ---
DATE OF SERVICE: 09/22/2019 SERVICE: Renal Medicine. SUBJECTIVE: Mr. Jones is a 33-year-old black male, who was admitted for progressive azotemia. His creatinine was noted to be at 9. For that reason, we have started to initiate peritoneal dialysis. A PD catheter has been placed this morning. I have scheduled him for an emergent peritoneal dialysis. We will follow up protocol of low fill volume. No other complaints today. OBJECTIVE: VITAL SIGNS: Blood pressure is 142/76, heart rate 84, respiratory rate 18, temperature 97.8, pulse ox 94%. GENERAL: Noted to be awake, alert, comfortable, not in distress. SKIN: Adequate turgor. HEENT: Slightly pale conjunctivae. Anicteric sclerae. NECK: No neck mass. No carotid bruits. No JVD. CHEST: No deformities. LUNGS: Clear breath sounds. HEART: Normal sinus rhythm. No murmur. No gallops. No rubs. ABDOMEN: Globular, soft, nontender. No masses. EXTREMITIES: Trace edema. No deformities. The patient has a PD catheter noted. MEDICATIONS: Medications of September 22, 2019 were reviewed. LABORATORY DATA: Laboratories of September 22, 2019; white count 4.2, hemoglobin 8.5. Sodium 138, potassium 4.1, chloride 105, carbon dioxide 25, BUN 60, creatinine 10.1, calcium 7.7. ASSESSMENT AND PLAN: 1. Chronic renal failure/end-stage renal disease - PD catheter has been placed. We will initiate peritoneal dialysis - no fill volumes either today or tomorrow. We will do 4 to 6 exchanges per day. Case discussed with the PD nurse. 2. Anemia. Start Epogen 7500 units subcu q.week. Also, start ferrous sulfate 325 mg p.o. b.i.d. Job ID: [id number]
[2019-09-22] MEDS ORDERED: Acetaminophen 325 MG TAB PO PRN (09:57)
[2019-09-22] MEDS ORDERED: Morphine 2 MG/ML SYRINGE SLOW IVP PRN (09:58)
[2019-09-22 10:46] LABS: HBSAB Concentration 4.03 mIU/mL; HBSAg Index 0.11 S/CO (0-0.99); Hep B Core Total Ab Non-Reactive (NonReactive); Hep B Core Total Index 0.09 S/CO (0-0.79); Hep B Surf AB Non-Reactive (NonReactive); Hep B Surf Ag Non-Reactive S/CO (NonReactive); Hep C IgG Ab Non-Reactive (NonReactive); Hep C Index 0.09 S/CO (0-0.79)
[2019-09-22] MEDS: HumaLOG 300 UNITS/3 ML VIAL SC PRN ×2 (11:24→17:32)
[2019-09-22] MEDS: Insulin Glargine 10 UNITS in Pre-Filled Syringe 1 EACH SC SCH (11:24)
--- NOTE | 2019-09-22 11:51 | PDOC.HOSPP ---
- Subjective Encounter Date: 09/22/19 Encounter Time: 11:40 Subjective: f/u for ESRD with plans to initiate PD today. PD catheter placed today and no new complaints. - Objective Vital Signs & Weight: Vital Signs (12 hours) Temp Pulse Resp BP BP Pulse Ox 09/22/19 11:06 98 F 88 18 126/78 95 09/22/19 09:11 97.8 F 84 18 142/76 H 94 L 09/22/19 06:45 98.3 F 92 18 155/92 H 98 09/22/19 04:00 97.9 F 87 16 144/83 H 97 09/21/19 23:49 98.6 F 91 18 129/76 98 Weight Weight 216 lb 6.4 oz I&O: 09/21/19 09/22/19 09/23/19 06:59 06:59 06:59 Intake Total 480 Balance 480 Result Diagrams: 09/22/19 05:15 09/22/19 05:15 Additional Labs: Accuchecks 09/22/19 09/22/19 09/22/19 11:08 08:46 04:36 POC Glucose 369 H 279 H 203 H 09/21/19 09/21/19 09/21/19 23:17 20:05 15:45 POC Glucose 124 H 300 H 276 H 09/21/19 12:21 POC Glucose 151 H Laboratory Tests 06/14/19 06/14/19 06/14/19 12:28 12:28 12:29 Hgb 12.2 L Hct Neutrophils % Neutrophils % (Manual) BUN Creatinine 6.25 H Hemoglobin A1c Troponin I 0.027 06/14/19 06/14/19 06/15/19 15:58 19:57 04:55 Hgb Hct Neutrophils % Neutrophils % (Manual) BUN Creatinine Hemoglobin A1c 8.0 H Troponin I 0.029 H 0.052 H 09/20/19 09/20/19 09/21/19 17:16 17:16 05:08 Hgb 10.9 L Hct 31.2 L Neutrophils % 78.5 H Neutrophils % (Manual) 71 BUN 58 H Creatinine 9.77 H Hemoglobin A1c Troponin I Hospitalist ROS - Medication Medications: Active Medications Generic Name Dose Route Start Last Admin Trade Name Freq PRN Reason Stop Dose Admin Acetaminophen 1,000 mg 09/20/19 20:15 09/21/19 05:32 Tylenol PO 1,000 mg Q6H PRN Administration Mild Pain (1-3) Aspirin 81 mg 09/21/19 09:00 09/21/19 09:09 Ecotrin PO 81 mg DAILY FLORENTINO Administration Calcitriol 0.25 mcg 09/21/19 09:00 09/21/19 09:09 Rocaltrol PO 0.25 mcg DAILY FLORENTINO Administration Carvedilol 25 mg 09/20/19 21:00 09/22/19 06:38 Coreg PO 25 mg BID FLORENTINO Administration Clonidine 0.2 mg 09/20/19 21:00 09/21/19 20:56 Catapres PO 0.2 mg QID FLORENTINO Administration Famotidine 20 mg 09/21/19 09:00 09/21/19 09:09 Pepcid PO 20 mg QAM FLORENTINO Administration Fish Oil 1,000 mg 09/21/19 09:00 09/21/19 09:09 Fish Oil PO 1,000 mg DAILY FLORENTINO Administration Insulin Glargine 10 units/ 0.1 mls @ 0 mls/hr 09/21/19 09:00 09/22/19 11:24 Miscellaneous Medication SC 0.1 mls QAM FLORENTINO Administration Insulin Human Lispro 0 units 09/20/19 20:15 09/22/19 11:24 Humalog SC 6 unit .MILD SLIDING SCALE PRN Administration Mild Correctional Scale Insulin Human Lispro 0 units 09/20/19 20:15 09/21/19 20:57 Humalog SC 3 unit .BEDTIME SLIDING SC PRN Administration Bedtime Correctional Scale Minoxidil 2.5 mg 09/21/19 09:00 09/21/19 09:09 Minoxidil PO 2.5 mg DAILY FLORENTINO Administration Nifedipine 90 mg 09/21/19 09:00 09/21/19 09:10 Procardia Xl PO 90 mg DAILY FLORENTINO Administration - Exam General Appearance: NAD, awake alert Eye: PERRL, anicteric sclera ENT: normocephalic atraumatic, no oropharyngeal lesions Neck: supple, symmetric, no JVD, no thyromegaly, no lymphadenopathy Heart: RRR, no murmur, no gallops, no rubs, normal peripheral pulses Respiratory: CTAB, no wheezes, no rales, no ronchi, normal chest expansion Gastrointestinal: soft, non-distended, normal bowel sounds, no palpable masses Gastrointestinal - other findings: PD catheter in RLQ Extremities: no cyanosis, no clubbing, no edema Skin: normal turgor, no lesions Neurological: cranial nerve grossly intact, no new deficit Musculoskeletal: normal tone, normal strength Psychiatric: normal affect, A&O x 3 Hosp A/P (1) ESRD on peritoneal dialysis Code(s): N18.6 - END STAGE RENAL DISEASE; Z99.2 - DEPENDENCE ON RENAL DIALYSIS Status: Chronic Plan: Initiating PD today, outpt coordination for home PD (2) Hypoglycemia Code(s): E16.2 - HYPOGLYCEMIA, UNSPECIFIED Status: Acute Plan: Resolved (3) Acute metabolic encephalopathy due to hypoglycemia Code(s): G93.41 - METABOLIC ENCEPHALOPATHY; E16.2 - HYPOGLYCEMIA, UNSPECIFIED Status: Acute Plan: Resolved with correction of hypoglycemia (4) DM I (diabetes mellitus, type I) Status: Chronic (5) HTN (hypertension) Code(s): I10 - ESSENTIAL (PRIMARY) HYPERTENSION Status: Chronic Qualifiers: Hypertension type: essential hypertension Qualified Code(s): I10 - Essential (primary) hypertension - Plan plan discussed w/ family, social economist, out of bed/ambulate, DVT proph w/SCDs Stable currently Resume ADA diet Initiating PD today Resume home BP regimen CM for outpt coordination for home PD AM lab: BMP
[2019-09-22] MEDS: HYDROcodone/Acetaminophen 5/325 mg Tablet PO PRN ×2 (12:47→19:39)
[2019-09-22] MEDS: Fish Oil 1,000 MG CAP PO SCH (12:48)
[2019-09-22] MEDS: Minoxidil 2.5 MG TAB PO SCH (12:48)
[2019-09-22] MEDS: Calcitriol 0.25 MCG CAP PO SCH (12:48)
[2019-09-22] MEDS: Aspirin 81 mg Enteric Coated Tablet PO SCH (12:48)
[2019-09-22] MEDS: NIFEdipine XL 90 MG TAB PO SCH (12:48)
[2019-09-22] MEDS: Famotidine 20 MG TAB PO SCH (12:48)
[2019-09-22] MEDS: cloNIDine 0.2 MG TAB PO SCH ×4 (12:49→20:08)
[2019-09-22] MEDS ORDERED: Glycopyrrolate 0.2 MG/ML 5 ML SYRINGE ONE (14:19)
[2019-09-22] MEDS ORDERED: Lidocaine 1% PF 5 ML VIAL ONE (14:19)
[2019-09-22] MEDS ORDERED: Succinylcholine Chloride 20 MG/ML 10 ml SYRINGE FS ONE (14:19)
[2019-09-22] MEDS ORDERED: Ondansetron PF 4 MG/2 ML Vial ONE (14:19)
[2019-09-22] MEDS ORDERED: PROPOFOL 200 MG/20 ML VIAL ONE (14:19)
[2019-09-22] MEDS ORDERED: Rocuronium Bromide 10 MG/ML (10ML VIAL) ONE (14:19)
[2019-09-22] MEDS: Ferrous Sulfate 325 MG TAB PO SCH (17:12)
[2019-09-23] MEDS: HYDROcodone/Acetaminophen 5/325 mg Tablet PO PRN ×2 (00:58→17:47)
[2019-09-23] MEDS: Ferrous Sulfate 325 MG TAB PO SCH ×2 (08:44→16:53)
[2019-09-23] MEDS: Fish Oil 1,000 MG CAP PO SCH (08:44)
[2019-09-23] MEDS: Calcitriol 0.25 MCG CAP PO SCH (08:44)
[2019-09-23] MEDS: Aspirin 81 mg Enteric Coated Tablet PO SCH (08:44)
[2019-09-23] MEDS: Carvedilol 25 MG TAB PO SCH ×2 (08:44→20:02)
[2019-09-23] MEDS: Minoxidil 2.5 MG TAB PO SCH (08:44)
[2019-09-23] MEDS: NIFEdipine XL 90 MG TAB PO SCH (08:44)
[2019-09-23] MEDS: Insulin Glargine 10 UNITS in Pre-Filled Syringe 1 EACH SC SCH (08:44)
[2019-09-23] MEDS: Famotidine 20 MG TAB PO SCH (08:45)
[2019-09-23] MEDS: cloNIDine 0.2 MG TAB PO SCH ×4 (08:45→20:02)
--- NOTE | 2019-09-23 10:02 | PRG ---
DATE OF SERVICE: 09/23/2019 SUBJECTIVE: Mr. Jones is a 33-year-old black male, admitted for worsening renal function. He has been initiated emergent peritoneal dialysis. Peritoneal dialysis catheter was placed yesterday. No other complaints today. OBJECTIVE: VITAL SIGNS: Blood pressure 163/96, heart rate 96, respiratory rate 20, temperature 98.6, and pulse ox 97%. GENERAL: Awake, alert, and comfortable, not in distress. SKIN: Adequate turgor. HEENT: Slightly pale conjunctivae. Anicteric sclerae. NECK: No neck mass. No carotid bruits. No JVD. CHEST: No deformities. LUNGS: Clear breath sounds. HEART: Normal sinus rhythm. No murmurs. No gallops. No rubs. ABDOMEN: Globular, soft, and nontender. No masses. Positive for PD catheter. EXTREMITIES: No edema. MEDICATIONS: Medications of September 23, 2019, reviewed. LABORATORY DATA: Laboratories of September 22, 2019, was reviewed. ASSESSMENT AND PLAN: 1. End-stage renal disease/chronic renal failure. Initiate emergent peritoneal dialysis. We will follow peritoneal dialysis protocol. Initially fill volume will just be 1 L. We will do him today and tomorrow. 2. Anemia on Epogen and iron supplementation. 3. Hypertension, adequate control. Continue current BP medications. No changes will be made for the moment. Job ID: [id number]
[2019-09-23] MEDS: HumaLOG 300 UNITS/3 ML VIAL SC PRN (12:25)
--- NOTE | 2019-09-23 15:00 | PDOC.HOSPP ---
- Subjective Encounter Date: 09/23/19 Encounter Time: 11:00 Subjective: pt up in bed dialysis nurse at bedside. pt denies any complains. - Objective Vital Signs & Weight: Vital Signs (12 hours) Temp Pulse Resp BP BP BP Pulse Ox 09/23/19 12:22 178/103 H 09/23/19 11:06 99.0 F 96 20 173/98 H 97 09/23/19 08:45 163/96 H 09/23/19 08:44 96 163/96 H 09/23/19 08:00 97 09/23/19 07:59 98.6 F 96 20 163/96 H 97 09/23/19 04:00 98.4 F 93 20 130/75 97 Weight Weight 216 lb 6.4 oz I&O: 09/22/19 09/23/19 09/24/19 06:59 06:59 06:59 Intake Total 480 760 240 Output Total 0 Balance 480 760 240 Result Diagrams: 09/22/19 05:15 09/22/19 05:15 Additional Labs: Accuchecks 09/23/19 09/23/19 09/23/19 11:07 04:45 00:34 POC Glucose 250 H 121 H 112 H 09/22/19 09/22/19 19:49 16:13 POC Glucose 156 H 292 H Hospitalist ROS - Review of Systems Cardiovascular: denies: chest pain, palpitations, orthopnea, paroxysmal noc. dyspnea, edema, light headedness, other Gastrointestinal: denies: nausea, vomiting, abdominal pain, diarrhea, constipation, melena, hematochezia, other Genitourinary: denies: dysuria, frequency, incontinence, hematuria, retention, other - Medication Medications: Active Medications Generic Name Dose Route Start Last Admin Trade Name Freq PRN Reason Stop Dose Admin Acetaminophen 1,000 mg 09/20/19 20:15 09/21/19 05:32 Tylenol PO 1,000 mg Q6H PRN Administration Mild Pain (1-3) Hydrocodone Bitart/Acetaminophen 1 tab 09/22/19 09:57 09/23/19 00:58 [place] 5/325 PO 1 tab Q4H PRN Administration Severe Pain (7-10) Aspirin 81 mg 09/21/19 09:00 09/23/19 08:44 Ecotrin PO 81 mg DAILY FLORENTINO Administration Calcitriol 0.25 mcg 09/21/19 09:00 09/23/19 08:44 Rocaltrol PO 0.25 mcg DAILY FLORENTINO Administration Carvedilol 25 mg 09/20/19 21:00 09/23/19 08:44 Coreg PO 25 mg BID FLORENTINO Administration Clonidine 0.2 mg 09/20/19 21:00 09/23/19 12:22 Catapres PO 0.2 mg QID FLORENTINO Administration Epoetin Bret-epbx 7,500 unit 09/22/19 09:30 09/22/19 15:31 Retacrit SC 7,500 unit Q7D FLORENTINO Administration Famotidine 20 mg 09/21/19 09:00 09/23/19 08:45 Pepcid PO 20 mg QAM FLORENTINO Administration Ferrous Sulfate 325 mg 09/22/19 17:00 09/23/19 08:44 Feosol PO 325 mg BID-WM FLORENTINO Administration Fish Oil 1,000 mg 09/21/19 09:00 09/23/19 08:44 Fish Oil PO 1,000 mg DAILY FLORENTINO Administration Insulin Glargine 10 units/ 0.1 mls @ 0 mls/hr 09/21/19 09:00 09/23/19 08:44 Miscellaneous Medication SC 0.1 mls QAM FLORENTINO Administration Insulin Human Lispro 0 units 09/20/19 20:15 09/23/19 12:25 Humalog SC 3 unit .MILD SLIDING SCALE PRN Administration Mild Correctional Scale Insulin Human Lispro 0 units 09/20/19 20:15 09/21/19 20:57 Humalog SC 3 unit .BEDTIME SLIDING SC PRN Administration Bedtime Correctional Scale Minoxidil 2.5 mg 09/21/19 09:00 09/23/19 08:44 Minoxidil PO 2.5 mg DAILY FLORENTINO Administration Nifedipine 90 mg 09/21/19 09:00 09/23/19 08:44 Procardia Xl PO 90 mg DAILY FLORENTINO Administration - Exam Heart: negative: RRR, no murmur, no gallops, no rubs, normal peripheral pulses, irregular, diminshed peripheral pulses, murmur present, II/IV, III/IV Respiratory: negative: CTAB, no wheezes, no rales, no ronchi, normal chest expansion, no tachypnea, normal percussion, rales, rhonchi, tachypneic, wheezes Gastrointestinal: negative: soft, non-tender, non-distended, normal bowel sounds , no palpable masses, no hepatomegaly, no splenomegaly, no bruit, no guarding, no rigidity, tender to palpation, distended, diminished bowl sounds, voluntary guarding Hosp A/P (1) Acute metabolic encephalopathy due to hypoglycemia Code(s): G93.41 - METABOLIC ENCEPHALOPATHY; E16.2 - HYPOGLYCEMIA, UNSPECIFIED Status: Acute (2) Hypoglycemia Code(s): E16.2 - HYPOGLYCEMIA, UNSPECIFIED Status: Acute (3) DM I (diabetes mellitus, type I) Status: Chronic (4) ESRD on peritoneal dialysis Code(s): N18.6 - END STAGE RENAL DISEASE; Z99.2 - DEPENDENCE ON RENAL DIALYSIS Status: Chronic (5) HTN (hypertension) Code(s): I10 - ESSENTIAL (PRIMARY) HYPERTENSION Status: Chronic Qualifiers: Hypertension type: essential hypertension Qualified Code(s): I10 - Essential (primary) hypertension - Plan pt's sugars have been stable. will continue lantus for now. He has stared on PD dialysis.
[2019-09-23] MEDS: Acetaminophen 500 MG TAB PO PRN (20:03)
[2019-09-24] MEDS: HumaLOG 300 UNITS/3 ML VIAL SC PRN ×3 (04:25→16:45)
[2019-09-24 05:51] LABS: #Eosinphils 0.2 thou/uL (0.0-0.7); #Lymphocytes 1.3 thou/uL (1.20-3.40); #Monocytes 0.5 thou/uL (0.11-0.59); #Neutrophils 2.6 thou/uL (1.40-6.50); %Basophils 0.6 % (0.0-1.0); %Eosinophils 5.1 % (0.0-10.0); %Lymphocytes 28.1 % (21.0-51.0); %Neutrophils 56.1 % (42.0-75.0); Hemoglobin 9.2 g/dL (14.0-18.0); Mean Corpuscular HGB CONC 34.2 g/dL (32.0-36.0); Mean Corpuscular Volume 90.6 fL (78.0-98.0); Mean Platelet Volume 7.1 fL (7.4-10.4); Platelet Count 293 thou/uL (130-400); RBC Distribution Width 12.2 % (11.5-14.5); Red Blood Cell (RBC) Count 2.98 mill/uL (4.70-6.10); White Blood Cell (WBC) Count 4.6 thou/uL (4.8-10.8)
[2019-09-24 06:08] LABS: Anion Gap 13 mmol/L (10-20); BUN (Urea Nitrogen) 62 mg/dL (8.9-20.6); Calc. Creatinine Clearance 13 mL/min (70-130); Calcium 8.1 mg/dL (7.8-10.44); Carbon Dioxide 24 mmol/L (22-29); Chloride 106 mmol/L (98-107); Estimated GFR-MDRD 7; Glucose 186 mg/dL (70-105)
[2019-09-24 06:25] LABS: Sodium 139 mmol/L (136-145)
[2019-09-24] MEDS: Fish Oil 1,000 MG CAP PO SCH (08:01)
[2019-09-24] MEDS: NIFEdipine XL 90 MG TAB PO SCH (08:01)
[2019-09-24] MEDS: Famotidine 20 MG TAB PO SCH (08:02)
[2019-09-24] MEDS: Ferrous Sulfate 325 MG TAB PO SCH ×2 (08:02→16:45)
[2019-09-24] MEDS: Insulin Glargine 10 UNITS in Pre-Filled Syringe 1 EACH SC SCH (08:02)
[2019-09-24] MEDS: Calcitriol 0.25 MCG CAP PO SCH (08:02)
[2019-09-24] MEDS: cloNIDine 0.2 MG TAB PO SCH ×4 (08:02→21:23)
[2019-09-24] MEDS: Aspirin 81 mg Enteric Coated Tablet PO SCH (08:02)
[2019-09-24] MEDS: Carvedilol 25 MG TAB PO SCH ×2 (08:02→21:23)
[2019-09-24] MEDS: Minoxidil 2.5 MG TAB PO SCH (08:02)
[2019-09-24] MEDS: Polyethylene Glycol 3350 17 GM Packet PO SCH (08:03)
[2019-09-24] MEDS ORDERED: READ PPD TEST SITE PO SCH (09:00)
--- NOTE | 2019-09-24 11:38 | PRG ---
DATE OF SERVICE: 09/24/2019 SUBJECTIVE: Mr. Jones is a 33-year-old black male, who was admitted for progressive azotemia. He was found to have a severely depressed GFR. He was initiated on emergent peritoneal dialysis. He currently is undergoing peritoneal dialysis. He tolerated said treatment yesterday and he is tolerating the current treatment today. No other complaints. No chest pain or shortness of breath. OBJECTIVE: VITAL SIGNS: Blood pressure is 129/82, heart rate 92, respiratory rate 18, temperature 99, pulse ox 98%. GENERAL: The patient is awake, alert, comfortable, not in distress. SKIN: Adequate turgor. HEENT: Slightly pale conjunctivae. Anicteric sclerae. No neck mass. No carotid bruits. No JVD. CHEST: No deformities. LUNGS: Clear breath sounds. HEART: Normal sinus rhythm. No murmurs. No gallops. No rubs. ABDOMEN: Globular, soft, nontender. No masses. Positive for PD catheter. EXTREMITIES: No edema. No deformities. MEDICATIONS: Of September 24, 2019, reviewed. LABORATORY DATA: Laboratories of September 24, 2019: White count 4.6, hemoglobin 9.2. Sodium 139, potassium 4, chloride 106, carbon dioxide 24, BUN 62, creatinine 10.98, glucose 186, calcium 8.1. ASSESSMENT AND PLAN: 1. Chronic renal failure/end-stage renal disease - on peritoneal dialysis - emergently initiated. The patient has outpatient dialysis placement and will continue his PD treatment and training at outpatient dialysis unit. From a renal point of view, he could be discharged any time. 2. Anemia. Continuing weekly Epogen. 3. Hypertension, good control. Continue current BP medications. Job ID: [id number]
--- NOTE | 2019-09-24 14:21 | PDOC.HOSPP ---
- Subjective Encounter Date: 09/24/19 Encounter Time: 10:15 Subjective: pt up in bed no complains. - Objective Vital Signs & Weight: Vital Signs (12 hours) Temp Pulse Resp BP BP BP BP 09/24/19 12:35 133/73 09/24/19 12:00 97.8 F 85 19 136/73 09/24/19 08:00 09/24/19 07:25 99 F 90 19 129/82 09/24/19 04:01 98.3 F 88 19 164/92 H Pulse Ox 09/24/19 12:35 09/24/19 12:00 95 09/24/19 08:00 98 09/24/19 07:25 98 09/24/19 04:01 96 Weight Weight 216 lb 6.4 oz I&O: 09/23/19 09/24/19 09/25/19 06:59 06:59 06:59 Intake Total 760 930 Output Total 0 Balance 760 930 Result Diagrams: 09/24/19 05:38 09/24/19 05:38 Additional Labs: Accuchecks 09/24/19 09/24/19 09/24/19 12:11 07:32 04:06 POC Glucose 244 H 170 H 197 H 09/24/19 09/23/19 09/23/19 00:16 19:51 16:48 POC Glucose 189 H 175 H 159 H Hospitalist ROS - Review of Systems Respiratory: denies: cough, dry, shortness of breath, hemoptysis, SOB with excertion, pleuritic pain, sputum, wheezing, other Cardiovascular: denies: chest pain, palpitations, orthopnea, paroxysmal noc. dyspnea, edema, light headedness, other Gastrointestinal: denies: nausea, vomiting, abdominal pain, diarrhea, constipation, melena, hematochezia, other - Medication Medications: Active Medications Generic Name Dose Route Start Last Admin Trade Name Freq PRN Reason Stop Dose Admin Acetaminophen 1,000 mg 09/20/19 20:15 09/23/19 20:03 Tylenol PO 1,000 mg Q6H PRN Administration Mild Pain (1-3) Hydrocodone Bitart/Acetaminophen 1 tab 09/22/19 09:57 09/23/19 17:47 [place] 5/325 PO 1 tab Q4H PRN Administration Severe Pain (7-10) Aspirin 81 mg 09/21/19 09:00 09/24/19 08:02 Ecotrin PO 81 mg DAILY FLORENTINO Administration Calcitriol 0.25 mcg 09/21/19 09:00 09/24/19 08:02 Rocaltrol PO 0.25 mcg DAILY FLORENTINO Administration Carvedilol 25 mg 09/20/19 21:00 09/24/19 08:02 Coreg PO 25 mg BID FLORENTINO Administration Clonidine 0.2 mg 09/20/19 21:00 09/24/19 12:35 Catapres PO 0.2 mg QID FLORENTINO Administration Epoetin Bret-epbx 7,500 unit 09/22/19 09:30 09/22/19 15:31 Retacrit SC 7,500 unit Q7D FLORENTINO Administration Famotidine 20 mg 09/21/19 09:00 09/24/19 08:02 Pepcid PO 20 mg QAM FLORENTINO Administration Ferrous Sulfate 325 mg 09/22/19 17:00 09/24/19 08:02 Feosol PO 325 mg BID-WM FLORENTINO Administration Fish Oil 1,000 mg 09/21/19 09:00 09/24/19 08:01 Fish Oil PO 1,000 mg DAILY FLORENTINO Administration Insulin Glargine 10 units/ 0.1 mls @ 0 mls/hr 09/21/19 09:00 09/24/19 08:02 Miscellaneous Medication SC 0.1 mls QAM FLORENTINO Administration Insulin Human Lispro 0 units 09/20/19 20:15 09/24/19 12:35 Humalog SC 3 unit .MILD SLIDING SCALE PRN Administration Mild Correctional Scale Insulin Human Lispro 0 units 09/20/19 20:15 09/21/19 20:57 Humalog SC 3 unit .BEDTIME SLIDING SC PRN Administration Bedtime Correctional Scale Minoxidil 2.5 mg 09/21/19 09:00 09/24/19 08:02 Minoxidil PO 2.5 mg DAILY FLORENTINO Administration Nifedipine 90 mg 09/21/19 09:00 09/24/19 08:01 Procardia Xl PO 90 mg DAILY FLORENTINO Administration Polyethylene Glycol 17 gm 09/24/19 09:00 09/24/19 08:03 Miralax PO 17 gm DAILY FLORENTINO Administration - Exam Neck: negative: supple, symmetric, no JVD, no thyromegaly, no lymphadenopathy, no carotid bruit, JVD Heart: negative: RRR, no murmur, no gallops, no rubs, normal peripheral pulses, irregular, diminshed peripheral pulses, murmur present, II/IV, III/IV Respiratory: negative: CTAB, no wheezes, no rales, no ronchi, normal chest expansion, no tachypnea, normal percussion, rales, rhonchi, tachypneic, wheezes Gastrointestinal: negative: soft, non-tender, non-distended, normal bowel sounds , no palpable masses, no hepatomegaly, no splenomegaly, no bruit, no guarding, no rigidity, tender to palpation, distended, diminished bowl sounds, voluntary guarding Hosp A/P (1) Acute metabolic encephalopathy due to hypoglycemia Code(s): G93.41 - METABOLIC ENCEPHALOPATHY; E16.2 - HYPOGLYCEMIA, UNSPECIFIED Status: Acute (2) Hypoglycemia Code(s): E16.2 - HYPOGLYCEMIA, UNSPECIFIED Status: Acute (3) DM I (diabetes mellitus, type I) Status: Chronic (4) ESRD on peritoneal dialysis Code(s): N18.6 - END STAGE RENAL DISEASE; Z99.2 - DEPENDENCE ON RENAL DIALYSIS Status: Chronic (5) HTN (hypertension) Code(s): I10 - ESSENTIAL (PRIMARY) HYPERTENSION Status: Chronic Qualifiers: Hypertension type: essential hypertension Qualified Code(s): I10 - Essential (primary) hypertension - Plan pt's sugars have been stable. will continue lantus for now. He has stared on PD dialysis. 09/24 Blood sugars are doing well, tolerating PD dialysis well.
[2019-09-25] MEDS: HumaLOG 300 UNITS/3 ML VIAL SC PRN ×4 (07:05→20:51)
[2019-09-25] MEDS: Famotidine 20 MG TAB PO SCH (08:29)
[2019-09-25] MEDS: Ferrous Sulfate 325 MG TAB PO SCH ×2 (08:29→17:02)
[2019-09-25] MEDS: Minoxidil 2.5 MG TAB PO SCH (08:30)
[2019-09-25] MEDS: Carvedilol 25 MG TAB PO SCH ×2 (08:30→20:52)
[2019-09-25] MEDS: Calcitriol 0.25 MCG CAP PO SCH (08:30)
[2019-09-25] MEDS: Aspirin 81 mg Enteric Coated Tablet PO SCH (08:30)
[2019-09-25] MEDS: Fish Oil 1,000 MG CAP PO SCH (08:30)
[2019-09-25] MEDS: NIFEdipine XL 90 MG TAB PO SCH (08:30)
[2019-09-25] MEDS: cloNIDine 0.2 MG TAB PO SCH ×4 (08:30→20:52)
[2019-09-25] MEDS: Insulin Glargine 10 UNITS in Pre-Filled Syringe 1 EACH SC SCH (08:31)
[2019-09-25] MEDS: Polyethylene Glycol 3350 17 GM Packet PO SCH (08:31)
[2019-09-25] MEDS ORDERED: Bisacodyl 5 MG TAB PO SCH (12:30)
--- NOTE | 2019-09-25 15:23 | PDOC.HOSPP ---
- Subjective Encounter Date: 09/25/19 Encounter Time: 10:30 Subjective: pt up in bed no complains - Objective Vital Signs & Weight: Vital Signs (12 hours) Temp Pulse Resp BP BP Pulse Ox 09/25/19 12:58 150/83 H 09/25/19 08:00 97 09/25/19 07:33 98.2 F 93 18 172/97 H 97 Weight Weight 216 lb 6.4 oz I&O: 09/24/19 09/25/19 09/26/19 06:59 06:59 06:59 Intake Total 930 Balance 930 Result Diagrams: 09/24/19 05:38 09/24/19 05:38 Additional Labs: Accuchecks 09/25/19 09/25/19 09/24/19 07:08 03:05 20:10 POC Glucose 217 H 201 H 197 H 09/24/19 16:03 POC Glucose 257 H Hospitalist ROS - Review of Systems Cardiovascular: denies: chest pain, palpitations, orthopnea, paroxysmal noc. dyspnea, edema, light headedness, other Gastrointestinal: denies: nausea, vomiting, abdominal pain, diarrhea, constipation, melena, hematochezia, other Genitourinary: denies: dysuria, frequency, incontinence, hematuria, retention, other - Medication Medications: Active Medications Generic Name Dose Route Start Last Admin Trade Name Freq PRN Reason Stop Dose Admin Acetaminophen 1,000 mg 09/20/19 20:15 09/23/19 20:03 Tylenol PO 1,000 mg Q6H PRN Administration Mild Pain (1-3) Hydrocodone Bitart/Acetaminophen 1 tab 09/22/19 09:57 09/23/19 17:47 [place] 5/325 PO 1 tab Q4H PRN Administration Severe Pain (7-10) Aspirin 81 mg 09/21/19 09:00 09/25/19 08:30 Ecotrin PO 81 mg DAILY FLORENTINO Administration Calcitriol 0.25 mcg 09/21/19 09:00 09/25/19 08:30 Rocaltrol PO 0.25 mcg DAILY FLORENTINO Administration Carvedilol 25 mg 09/20/19 21:00 09/25/19 08:30 Coreg PO 25 mg BID FLORENTINO Administration Clonidine 0.2 mg 09/20/19 21:00 09/25/19 12:58 Catapres PO 0.2 mg QID FLORENTINO Administration Epoetin Bret-epbx 7,500 unit 09/22/19 09:30 09/22/19 15:31 Retacrit SC 7,500 unit Q7D FLORENTINO Administration Famotidine 20 mg 09/21/19 09:00 09/25/19 08:29 Pepcid PO 20 mg QAM FLOR[place]INO Administration Ferrous Sulfate 325 mg 09/22/19 17:00 09/25/19 08:29 Feosol PO 325 mg BID-WM FLORENTINO Administration Fish Oil 1,000 mg 09/21/19 09:00 09/25/19 08:30 Fish Oil PO 1,000 mg DAILY FLORENTINO Administration Insulin Human Lispro 0 units 09/20/19 20:15 09/25/19 12:58 Humalog SC 2 unit .MILD SLIDING SCALE PRN Administration Mild Correctional Scale Insulin Human Lispro 0 units 09/20/19 20:15 09/21/19 20:57 Humalog SC 3 unit .BEDTIME SLIDING SC PRN Administration Bedtime Correctional Scale Minoxidil 2.5 mg 09/21/19 09:00 09/25/19 08:30 Minoxidil PO 2.5 mg DAILY FLOR[place]INO Administration Nifedipine 90 mg 09/21/19 09:00 09/25/19 08:30 Procardia Xl PO 90 mg DAILY FLORENTINO Administration Polyethylene Glycol 17 gm 09/24/19 09:00 09/25/19 08:31 Miralax PO 17 gm DAILY FLOR[place]INO Administration - Exam Neck: negative: supple, symmetric, no JVD, no thyromegaly, no lymphadenopathy, no carotid bruit, JVD Heart: negative: RRR, no murmur, no gallops, no rubs, normal peripheral pulses, irregular, diminshed peripheral pulses, murmur present, II/IV, III/IV Respiratory: negative: CTAB, no wheezes, no rales, no ronchi, normal chest expansion, no tachypnea, normal percussion, rales, rhonchi, tachypneic, wheezes Gastrointestinal: negative: soft, non-tender, non-distended, normal bowel sounds , no palpable masses, no hepatomegaly, no splenomegaly, no bruit, no guarding, no rigidity, tender to palpation, distended, diminished bowl sounds, voluntary guarding Hosp A/P (1) Acute metabolic encephalopathy due to hypoglycemia Code(s): G93.41 - METABOLIC ENCEPHALOPATHY; E16.2 - HYPOGLYCEMIA, UNSPECIFIED Status: Acute (2) Hypoglycemia Code(s): E16.2 - HYPOGLYCEMIA, UNSPECIFIED Status: Acute (3) DM I (diabetes mellitus, type I) Status: Chronic (4) ESRD on peritoneal dialysis Code(s): N18.6 - END STAGE RENAL DISEASE; Z99.2 - DEPENDENCE ON RENAL DIALYSIS Status: Chronic (5) HTN (hypertension) Code(s): I10 - ESSENTIAL (PRIMARY) HYPERTENSION Status: Chronic Qualifiers: Hypertension type: essential hypertension Qualified Code(s): I10 - Essential (primary) hypertension - Plan pt's sugars have been stable. will continue lantus for now. He has stared on PD dialysis. 09/24 Blood sugars are doing well, tolerating PD dialysis well. 09/25 will increase his lantus to 12units. discharge when ok with nephrology.
[2019-09-26 05:13] LABS: #Eosinphils 0.3 thou/uL (0.0-0.7); #Lymphocytes 1.3 thou/uL (1.20-3.40); #Monocytes 0.4 thou/uL (0.11-0.59); #Neutrophils 2.2 thou/uL (1.40-6.50); %Basophils 0.4 % (0.0-1.0); %Eosinophils 6.3 % (0.0-10.0); %Lymphocytes 30.9 % (21.0-51.0); %Monocytes 8.9 % (0.0-10.0); %Neutrophils 53.5 % (42.0-75.0); Hemoglobin 10.5 g/dL (14.0-18.0); Mean Corpuscular Hemoglobin 31.4 pg (27.0-31.0); Mean Corpuscular Volume 92.4 fL (78.0-98.0); Mean Platelet Volume 6.9 fL (7.4-10.4); Platelet Count 384 thou/uL (130-400); RBC Distribution Width 12.2 % (11.5-14.5); Red Blood Cell (RBC) Count 3.33 mill/uL (4.70-6.10); White Blood Cell (WBC) Count 4.1 thou/uL (4.8-10.8)
[2019-09-26 06:00] LABS: Anion Gap 18 mmol/L (10-20); BUN (Urea Nitrogen) 66 mg/dL (8.9-20.6); Calc. Creatinine Clearance 13 mL/min (70-130); Calcium 8.6 mg/dL (7.8-10.44); Carbon Dioxide 22 mmol/L (22-29); Chloride 105 mmol/L (98-107); Estimated GFR-MDRD 7; Glucose 137 mg/dL (70-105); Potassium 4.2 mmol/L (3.5-5.1); Sodium 141 mmol/L (136-145)
[2019-09-26] MEDS: Calcitriol 0.25 MCG CAP PO SCH (08:38)
[2019-09-26] MEDS: cloNIDine 0.2 MG TAB PO SCH (08:38)
[2019-09-26] MEDS: Carvedilol 25 MG TAB PO SCH (08:38)
[2019-09-26] MEDS: Ferrous Sulfate 325 MG TAB PO SCH (08:38)
[2019-09-26] MEDS: Aspirin 81 mg Enteric Coated Tablet PO SCH (08:38)
[2019-09-26] MEDS: Minoxidil 2.5 MG TAB PO SCH (08:39)
[2019-09-26] MEDS: Polyethylene Glycol 3350 17 GM Packet PO SCH (08:39)
[2019-09-26] MEDS: NIFEdipine XL 90 MG TAB PO SCH (08:39)
[2019-09-26] MEDS: Fish Oil 1,000 MG CAP PO SCH (08:39)
[2019-09-26] MEDS: Famotidine 20 MG TAB PO SCH (08:39)
[2019-09-26] MEDS ORDERED: Insulin Glargine 12 UNITS in Pre-Filled Syringe 1 EACH SC SCH (09:00)
[2019-09-26] MEDS ORDERED: Insulin Glargine 14 UNITS in Pre-Filled Syringe 1 EACH SC SCH (09:00)
--- NOTE | 2019-09-26 09:43 | PDOC.HOSPP ---
- Subjective Encounter Date: 09/26/19 Encounter Time: 12:00 Subjective: Patient discharged to allow him to make it to dialysis by 1300 - Objective Vital Signs & Weight: Vital Signs (12 hours) Temp Pulse Resp BP BP BP BP 09/26/19 08:39 93 154/90 H 09/26/19 08:38 154/90 H 09/26/19 07:52 98.6 F 93 20 154/90 H 09/26/19 04:00 98.0 F 89 18 169/98 H 09/26/19 03:55 98.0 F 89 20 169/98 H 09/26/19 00:00 98.4 F 89 20 153/93 H 09/25/19 23:42 98.4 F 89 20 153/93 H Pulse Ox 09/26/19 08:39 09/26/19 08:38 09/26/19 07:52 98 09/26/19 04:00 98 09/26/19 03:55 98 09/26/19 00:00 97 09/25/19 23:42 97 Weight Weight 216 lb 6.4 oz Result Diagrams: 09/26/19 04:48 09/26/19 04:48 Additional Labs: Accuchecks 09/26/19 09/25/19 09/25/19 03:58 23:51 19:50 POC Glucose 140 H 180 H 278 H 09/25/19 09/25/19 15:50 11:50 POC Glucose 194 H 185 H Hospitalist ROS - Medication Medications: Active Medications Generic Name Dose Route Start Last Admin Trade Name Freq PRN Reason Stop Dose Admin Acetaminophen 1,000 mg 09/20/19 20:15 09/23/19 20:03 Tylenol PO 1,000 mg Q6H PRN Administration Mild Pain (1-3) Hydrocodone Bitart/Acetaminophen 1 tab 09/22/19 09:57 09/23/19 17:47 [place] 5/325 PO 1 tab Q4H PRN Administration Severe Pain (7-10) Aspirin 81 mg 09/21/19 09:00 09/26/19 08:38 Ecotrin PO 81 mg DAILY FLOR[place]INO Administration Calcitriol 0.25 mcg 09/21/19 09:00 09/26/19 08:38 Rocaltrol PO 0.25 mcg DAILY FLOR[place]INO Administration Carvedilol 25 mg 09/20/19 21:00 09/26/19 08:38 Coreg PO 25 mg BID [place] Administration Clonidine 0.2 mg 09/20/19 21:00 09/26/19 08:38 Catapres PO 0.2 mg QID [place] Administration Epoetin Bret-epbx 7,500 unit 09/22/19 09:30 09/22/19 15:31 Retacrit SC 7,500 unit Q7D [place] Administration Famotidine 20 mg 09/21/19 09:00 09/26/19 08:39 Pepcid PO 20 mg QAM [place] Administration Ferrous Sulfate 325 mg 09/22/19 17:00 09/26/19 08:38 Feosol PO 325 mg BID-WM [place]INO Administration Fish Oil 1,000 mg 09/21/19 09:00 09/26/19 08:39 Fish Oil PO 1,000 mg DAILY FLORENTINO Administration Insulin Glargine 14 units/ 0.14 mls @ 0 mls/hr 09/26/19 09:00 09/26/19 08:39 Miscellaneous Medication SC 0.14 mls QAM FLOR[place]INO Administration Insulin Human Lispro 0 units 09/20/19 20:15 09/25/19 17:02 Humalog SC 2 unit .MILD SLIDING SCALE PRN Administration Mild Correctional Scale Insulin Human Lispro 0 units 09/20/19 20:15 09/25/19 20:51 Humalog SC 3 unit .BEDTIME SLIDING SC PRN Administration Bedtime Correctional Scale Minoxidil 2.5 mg 09/21/19 09:00 09/26/19 08:39 Minoxidil PO 2.5 mg DAILY [place] Administration Nifedipine 90 mg 09/21/19 09:00 09/26/19 08:39 Procardia Xl PO 90 mg DAILY [place]INO Administration Polyethylene Glycol 17 gm 09/24/19 09:00 09/26/19 08:39 Miralax PO 17 gm DAILY [place] Administration Hosp A/P (1) Acute metabolic encephalopathy due to hypoglycemia Code(s): G93.41 - METABOLIC ENCEPHALOPATHY; E16.2 - HYPOGLYCEMIA, UNSPECIFIED Status: Resolved (2) DM I (diabetes mellitus, type I) Status: Chronic (3) ESRD on peritoneal dialysis Code(s): N18.6 - END STAGE RENAL DISEASE; Z99.2 - DEPENDENCE ON RENAL DIALYSIS Status: Chronic (4) HTN (hypertension) Code(s): I10 - ESSENTIAL (PRIMARY) HYPERTENSION Status: Chronic Qualifiers: Hypertension type: essential hypertension Qualified Code(s): I10 - Essential (primary) hypertension - Plan Hypoglycemia resolved and back on home dose Lantus without problem Cleared by Dr. Ramirez to discharge, has f/u with teaching at dialysis center at 1300 today D/C home
[2019-09-26 11:44] VITALS: BP 126/81; TEMP 97.7
[2019-09-26] MEDS: HumaLOG 300 UNITS/3 ML VIAL SC PRN (11:58)
--- NOTE | 2019-09-26 16:04 | DIS ---
DATE OF ADMISSION: 09/20/2019 DATE OF DISCHARGE: 09/26/2019 PRIMARY CARE PHYSICIAN: Farshad Espinal. PRIMARY FENCE INSTALLER HELPER: Juancarlos Weber MD REASON FOR ADMISSION: Acute hypoglycemic episode and acute metabolic encephalopathy. DIAGNOSES AT DISCHARGE: 1. Hypoglycemia, resolved. 2. Metabolic encephalopathy, resolved. 3. End-stage renal disease, on peritoneal dialysis. 4. Diabetes mellitus type 1. 5. Hypertension. PROCEDURES: 1. Venogram showed normal exam of the bilateral lower extremities. 2. Laparoscopic peritoneal dialysis catheter placement. CONSULTATIONS: 1. Nephrology, Dr. Ramirez. 2. General Surgery, Dr. Espinoza. SUMMARY OF HOSPITAL COURSE: This is a 33-year-old male, who presented to [facility] with severe hypoglycemia. The patient had similar hypoglycemia back in June. His altered mental status resolved with administration of dextrose. The patient was monitored closely in the hospital. He was able to have his insulin reinstituted and actually have hyperglycemia on his home dose of insulin. He did have a hemodialysis catheter placed while he was in the hospital and is initiating peritoneal dialysis. On the day of discharge, the patient has an appointment at the dialysis center at 1 p.m., so he was discharged early in the morning before I arrived to see him. DISCHARGE MANAGEMENT: Discharged home. FOLLOWUP: Follow up at the dialysis center later today and with Dr. Espinoza in 2 weeks and with [facility] in 1 week. ACTIVITY: As tolerated. DIET: Diabetic renal diet. DISCHARGE MEDICATIONS: Resume all home medications: 1. Aspirin 81 mg daily. 2. Baclofen 10 mg twice a day. 3. Calcitriol 0.25 mcg daily. 4. Coreg 25 mg twice a day. 5. Clonidine 0.2 mg 4 times a day. 6. Fish oil 1000 mcg daily. 7. Insulin glargine 12 units subcu q.a.m. 8. Minoxidil 2.5 mg daily. 9. Nifedipine 30 mg daily. Job ID: [id number]
== END 2019-09-26 12:27 | disposition home or self-care (01) | DRG 981 ==
LOC: ERS 15:42 → T4-A 22:16
PROVIDERS: ADMIT Family Medicine; ATTEND Family Medicine
PROC: 0WHG43Z Insertion of Infusion Device into Peritoneal Cavity, Percutaneous Endoscopic Approach (ICD-10-PCS; principal; 2019-09-22)
PROC: 3E1M39Z Irrigation of Peritoneal Cavity using Dialysate, Percutaneous Approach (ICD-10-PCS; 2019-09-22)
DX: E10.649 Type 1 diabetes mellitus with hypoglycemia without coma (principal); G93.41 Metabolic encephalopathy; I12.0 Hypertensive chronic kidney disease with stage 5 chronic kidney disease or end stage renal disease; N18.6 End stage renal disease; N25.81 Secondary hyperparathyroidism of renal origin; E10.22 Type 1 diabetes mellitus with diabetic chronic kidney disease; Z99.2 Dependence on renal dialysis; E78.5 Hyperlipidemia, unspecified; Z83.3 Family history of diabetes mellitus; Z82.49 Family history of ischemic heart disease and other diseases of the circulatory system; E10.21 Type 1 diabetes mellitus with diabetic nephropathy; D64.9 Anemia, unspecified
CPT/HCPCS: 36415; 36416; 80048; 80053; 81003; 81015; 85007; 85025; 85027; 86580; 86704; 86706; 86803; 87340; 93970; 96374; C1769; J0690; J1644; J1815; J2001; J2405; J2704; J3010; Q5105; S0020